=== PATIENT | female | born 1985 | race Caucasian/White ===

== ENCOUNTER → 2018-09-09 07:57 | Outpatient (CLI) | payer BC, SELFPAY ==
[2018-09-09 09:32] LABS: Alanine Aminotransferase 27 U/L (12-78); Albumin Level 3.7 gm/dL (3.4-5.0); Albumin/Globulin Ratio 1.1 (1.1-1.8); Alkaline Phosphatase 71 U/L (46-116); Anion Gap 13.5 mEq/L (5-15); Aspartate Amino Transferase 10 U/L (15-37); Bilirubin,Total 0.3 mg/dL (0.2-1.0); Blood Urea Nitrogen 11 mg/dL (7-18); Carbon Dioxide 26 mmol/L (21.0-32.0); Chloride 105 mmol/L (98-107); Chol/HDL Ratio 5.4 (1-3.5); Cholesterol 227 mg/dL (140-200); Creatinine,Serum 0.78 mg/dL (0.55-1.02); Estimated Glomerular Filt Rate 86 ml/min (>60); GFR (African American) 104 ML/MIN (>60); Globulin 3.5 gm/dl (1.3-3.2); Glucose 91 mg/dL (74-106); HDL Cholesterol 42 mg/dL (29-89); LDL Cholesterol 157 mg/dL (0-130); Potassium 4.5 mmoL/L (3.5-5.1); Sodium 140 mmol/L (136-145); Total Protein,Serum 7.2 gm/dL (6.4-8.2); Triglycerides 139 mg/dL (30-200); VLDL Cholesterol 28 mg/dL (0-40)
== END ==
PROVIDERS: Visit Provider Nurse Practitioner Family
DX: Z00.00 Encounter for general adult medical examination without abnormal findings (principal)
CPT/HCPCS: 36415; 80053; 80061

== ENCOUNTER → 2018-10-02 09:53 | Outpatient (CLI) | payer BC, SELFPAY ==
[2018-10-02 11:24] LABS: Anion Gap 14.1 mEq/L (5-15); Blood Urea Nitrogen 10 mg/dL (7-18); Calcium 8.6 mg/dL (8.5-10.1); Carbon Dioxide 25 mmol/L (21.0-32.0); Chloride 103 mmol/L (98-107); Creatinine,Serum 0.71 mg/dL (0.55-1.02); Estimated Glomerular Filt Rate 95 ml/min (>60); GFR (African American) 115 ML/MIN (>60); Glucose 89 mg/dL (74-106); Potassium 4.1 mmoL/L (3.5-5.1); Sodium 138 mmol/L (136-145)
== END ==
PROVIDERS: Visit Provider Nurse Practitioner Family
DX: I10 Essential (primary) hypertension (principal)
CPT/HCPCS: 36415; 80048

== ENCOUNTER → 2019-01-02 13:03 | Outpatient (CLI) | payer BC, SELFPAY ==
--- NOTE | 2019-01-02 13:18 | XR_ITS ---
XR Multiple Spine 6+V CLINICAL INDICATION: ITS.REASON: THORACIC SPINE PAIN,CERVICAL PAIN,H/O SPINAL SURGERY ORDERING PHYSICIAN: Delaney Bennett APRN PATIENT AGE: 33 years Comparison: None FINDINGS: Multiple views are obtained of the cervical and of the thoracic spine. Cervical spine has an unremarkable appearance. There is normal alignment with no fracture or dislocation or significant degenerative change. No abnormal subluxation. The foramina are widely patent. There are Leija jarred is present in the thoracic spine with the superior aspect of the right fixed at the T2 level in the inferior aspect of the rods fixed at the T9-T10 level. There is minimal mid thoracic scoliosis convex right. No acute fracture or dislocation is evident.. There remains decrease in height along the left aspect of the T4 vertebral body. No significant change with no acute finding. Calcified granulomas are noted in the right lung base IMPRESSION: Overall no significant change in the Leija rods. Mild upper thoracic curvature convex right with mild wedging of T4 along the left lateral aspect not significantly changed. Unremarkable cervical spine
== END ==
LOC: RAD 13:07
PROVIDERS: PCP Nurse Practitioner Family; Visit Provider Nurse Practitioner Family
DX: M54.6 Pain in thoracic spine (principal); M54.2 Cervicalgia; M54.9 Dorsalgia, unspecified; G89.29 Other chronic pain
CPT/HCPCS: 72084

== ENCOUNTER → 2019-01-05 14:07 | Outpatient (POV) | payer BC, SELFPAY ==
[2019-01-05 14:32] VITALS: BP 135/88; PULSE 113; RESP 18; O2SAT 98; BMI 29.8
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
== END ==
PROVIDERS: PCP Nurse Practitioner Family; Visit Provider Clinical Nurse Specialist Family Health
DX: M50.30 Other cervical disc degeneration, unspecified cervical region (principal); M96.1 Postlaminectomy syndrome, not elsewhere classified
CPT/HCPCS: 99202

== ENCOUNTER → 2019-01-12 07:56 | Outpatient (CLI) | payer BC, SELFPAY ==
--- NOTE | 2019-01-12 08:02 | MR_ITS ---
PROCEDURE: MR CERVICAL SPINE WO CON CLINICAL INDICATION: NECK PAIN Right shoulder pain, right arm numbness, prior neck surgery COMPARISON: CS5 CERVICAL SPINE 4 OR 5 VIEWS from 02/07/2015 TECHNIQUE: Standard multiplanar multiecho sequences are performed without contrast. 3-D MIP and myelographic images are also rendered and reviewed FINDINGS: Extensive artifact is present in the lower cervical spine and upper thoracic spine obscuring fine detail at T7 posteriorly and T1 and lower. The cranial cervical junction has an unremarkable appearance. C2-C3: Unremarkable. C3-C4: Unremarkable. C4-C5: Minimal central disc protrusion abutting the cord anteriorly but without cord displacement or impingement. There narrowing of the canal at this level at 10 mm. C5-C6: Minimal central disc protrusion without impingement. C6-C7: Axial images are nondiagnostic due to artifact. There is some minimal bulging disc at C6-C7 without cord impingement. No extruded herniated disc evident. IMPRESSION: Significant artifact in the lower cervical and upper thoracic spine obscuring fine detail. C4-C5: Minimal central disc protrusion abutting the cord anteriorly but without cord displacement or impingement. There narrowing of the canal at this level at 10 mm. C5-C6: Minimal central disc protrusion without impingement. C6-C7: Axial images are nondiagnostic due to artifact. There is some minimal bulging disc at C6-C7 without cord impingement Dictated by: Jose Luis Barnes MD 01/13/2019 07:02 Signed by: <Electronically signed by Jose Luis Barnes MD in [place]> 01/13/2019 07:02
== END ==
PROVIDERS: PCP Nurse Practitioner Family; Visit Provider Clinical Nurse Specialist Family Health
DX: M54.2 Cervicalgia (principal)
CPT/HCPCS: 72141; 76376

== ENCOUNTER → 2019-01-19 08:45 | Outpatient (POV) | payer BC, SELFPAY ==
[2019-01-19 09:02] VITALS: BP 135/89; PULSE 98; RESP 18; O2SAT 98; BMI 30.9
--- NOTE | 2019-01-19 09:25 | HMH.PAINSOAP ---
[facility] Pain Management SOAP Note Subjective:: Patient is an extremely pleasant 33-year-old white female who presents today for consultation after her MRI. Patient has C4-C5 C5-C6 C6-C7 bulging disks. There is no displacement or impingement of the cord. patient has pain in her neck radiating into her arm. We discussed moving forward with epidural steroid injections. She rates her pain an 8 out of 10. Patient is not sleeping well. Patient has been on Mobic for some time we discussed switching her off some of her medications to help with increased pain relief. ROS General: no recent weight change, no fever, no sleep disturbances Respiratory: no cough, no shortness of air, no recurring pulmonary infections Cardiovascular/Peripheral Vascular: No chest pain, No palpitations, no edema, no shortness of breath. Gastrointestinal: no incontinence, normal bowel movements reported Genitourinary: no incontinence Musculoskeletal: Neck pain, arm pain Psychiatric: normal mood/ affect, Neurological: [denies weakness in extremities], [denies balance issues] Objective:: Physical Exam General: Alert and oriented x3, no acute distress, pleasant and cooperative, [on room air] Lungs: Resps E/U, Symmetrical chest expansion, Eyes: PERRL Musculoskeletal: Flexion and extension of cervical spine somewhat guarded secondary to pain, deep tendon reflexes normal, strength in upper and lower extremities [5/5], normal gait noted Neurological: speech clear, butter printer equal, no gross sensory deficits Assessment:: Degenerative disc disease cervical spinal cervical radiculopathy and cervical postlaminectomy syndrome Plan:: We will schedule her C5-C6 cervical epidural steroid injection. We will also start her on gabapentin 100 mg at bedtime to see if this is beneficial. I also gave her a sample of Duexis to try in place of her Mobic. I will follow-up with her after her epidural and reassess her symptoms at that time we did briefly talk about the [place] spinal [place] as well. Patient is continuing a home stretching program. She is not on any anticoagulation therapy. She is failed 6 months of conservative treatments including anti-inflammatories and medications. Dr. Rodríguez has reviewed this note and agrees with this plan of care. This note was dictated using voice recognition software and may contain errors or omissions Pain Management Hx Components *Have you ever received a pneumonia vaccine?: Yes *Have you received a flu vaccine this season?: Yes - *Social History *Occupational Status:: other *Travel in the last 8 weeks: None
--- NOTE | 2019-01-19 09:28 | P.CONS_ITS ---
[facility] Pain Management SOAP Note Subjective:: Patient is an extremely pleasant 33-year-old white female who presents today for consultation after her MRI. Patient has C4-C5 C5-C6 C6-C7 bulging disks. There is no displacement or impingement of the cord. patient has pain in her neck radiating into her arm. We discussed moving forward with epidural steroid injections. She rates her pain an 8 out of 10. Patient is not sleeping well. Patient has been on Mobic for some time we discussed switching her off some of her medications to help with increased pain relief. ROS General: no recent weight change, no fever, no sleep disturbances Respiratory: no cough, no shortness of air, no recurring pulmonary infections Cardiovascular/Peripheral Vascular: No chest pain, No palpitations, no edema, no shortness of breath. Gastrointestinal: no incontinence, normal bowel movements reported Genitourinary: no incontinence Musculoskeletal: Neck pain, arm pain Psychiatric: normal mood/ affect, Neurological: [denies weakness in extremities], [denies balance issues] Objective:: Physical Exam General: Alert and oriented x3, no acute distress, pleasant and cooperative, [on room air] Lungs: Resps E/U, Symmetrical chest expansion, Eyes: PERRL Musculoskeletal: Flexion and extension of cervical spine somewhat guarded secondary to pain, deep tendon reflexes normal, strength in upper and lower extremities [5/5], normal gait noted Neurological: speech clear, prosthetic technician equal, no gross sensory deficits Assessment:: Degenerative disc disease cervical spinal cervical radiculopathy and cervical postlaminectomy syndrome Plan:: We will schedule her C5-C6 cervical epidural steroid injection. We will also start her on gabapentin 100 mg at bedtime to see if this is beneficial. I also gave her a sample of Duexis to try in place of her Mobic. I will follow-up with her after her epidural and reassess her symptoms at that time we did briefly talk about the [place] spinal [place] as well. Patient is continuing a home stretching program. She is not on any anticoagulation therapy. She is failed 6 months of conservative treatments including anti-inflammatories and medications. Dr. Rodríguez has reviewed this note and agrees with this plan of care. This note was dictated using voice recognition software and may contain errors or omissions Pain Management Hx Components *Have you ever received a pneumonia vaccine?: Yes *Have you received a flu vaccine this season?: Yes - *Social History *Occupational Status:: other *Travel in the last 8 weeks: None
== END ==
PROVIDERS: PCP Nurse Practitioner Family; Visit Provider Clinical Nurse Specialist Family Health
DX: M50.10 Cervical disc disorder with radiculopathy, unspecified cervical region (principal); M96.1 Postlaminectomy syndrome, not elsewhere classified
CPT/HCPCS: 99212

== ENCOUNTER → 2019-02-24 09:26 | Outpatient (POV) | payer BC, SELFPAY ==
[2019-02-24 09:50] VITALS: BP 147/98; PULSE 98; RESP 18; O2SAT 98; BMI 30.9
--- NOTE | 2019-02-24 10:10 | HMH.PAINSOAP ---
[facility] Pain Management SOAP Note Subjective:: Patient is a pleasant 33-year-old white female who was treated for pain secondary to degenerative disc disease cervical spine with cervical disc bulge and radiculopathy. Patient is also had cervical postlaminectomy. Patient rates her pain today 2 out of 10 and states she is doing much better stating that she is having 80% relief from her injection. She is also taking her gabapentin nightly with no side effects. We will do a slight increase in this today. ROS General: no recent weight change, no fever, no sleep disturbances Respiratory: no cough, no shortness of air, no recurring pulmonary infections Cardiovascular/Peripheral Vascular: No chest pain, No palpitations, no edema, no shortness of breath. Gastrointestinal: no incontinence, normal bowel movements reported Genitourinary: no incontinence Musculoskeletal: Neck pain Psychiatric: normal mood/ affect Neurological: [denies weakness in extremities], [denies balance issues] Objective:: Physical Exam General: Alert and oriented x3, no acute distress, pleasant and cooperative, [on room air] Lungs: Resps E/U, Symmetrical chest expansion, Eyes: PERRL Musculoskeletal: Flexion and extension of cervical spine somewhat guarded secondary to pain, deep tendon reflexes normal, strength in upper and lower extremities [5/5], normal gait noted Neurological: speech clear, senior recruitment consultant equal, no gross sensory deficits Assessment:: Degenerative disc disease cervical spinal cervical radiculopathy and cervical postlaminectomy syndrome Plan:: We will see the patient back in 6 weeks we will increase her gabapentin to 300 mg 1 p.o. twice daily patient's been instructed to call the office if she has any issues prior to her next appointment. Dr. Rodríguez has reviewed this note and agrees with this plan of care. This note was dictated using voice recognition software and may contain errors or omissions [facility] History I have reviewed the patient's past medical history: Yes Medical History: Reports:: Hyperlipidemia, Hypertension, Palpitations Denies:: Asthma, Cancer, Congestive Heart Failure, Chronic Obstructive Pulmonary Disease (COPD), Deep Vein Thrombosis, Diabetes Mellitus Type 1, Diabetes Mellitus Type 2, MRSA, Pulmonary Embolism, Seizures *Have you ever received a pneumonia vaccine?: Yes *Have you received a flu vaccine this season?: Yes Other Surgeries: Yes: Cholecystectomy, , Tubal Ligation, Other Amputation: No Fractures: No - *Social History Smoking Status: Never smoker Alcohol Intake: never Substance Use Type: denies use *Occupational Status:: other Housing: house Household Members: other *Travel in the last 8 weeks: None Family Hx:: Coronary Artery Disease, Heart Attack
== END ==
PROVIDERS: PCP Nurse Practitioner Family; Visit Provider Clinical Nurse Specialist Family Health
DX: M50.10 Cervical disc disorder with radiculopathy, unspecified cervical region (principal); M96.1 Postlaminectomy syndrome, not elsewhere classified
CPT/HCPCS: 99212

== ENCOUNTER → 2019-06-01 14:56 | Outpatient (POV) | payer BC, SELFPAY ==
[2019-06-01 15:16] VITALS: BP 120/77; PULSE 87; RESP 18; O2SAT 99; BMI 31.6
--- NOTE | 2019-06-02 08:28 | P.CONS_ITS ---
[facility] Pain Management SOAP Note Subjective:: Patient is a very pleasant 33-year-old white female who presents today for follow-up overall patient is doing extremely well rating her pain today a 0 out of 10. Patient is currently on gabapentin 300 mg 1 p.o. twice daily patient has been being treated for cervical pain secondary to surgery. Patient's Chalo #[id number] reviewed and appropriate. Patient denies any side effects to her medication overall patient's doing well. ROS General: no recent weight change, no fever, no sleep disturbances Respiratory: no cough, no shortness of air, no recurring pulmonary infections Cardiovascular/Peripheral Vascular: No chest pain, No palpitations, no edema, no shortness of breath. Gastrointestinal: no new onset incontinence, normal bowel movements reported Genitourinary: no new onset incontinence Musculoskeletal: Neck pains at time Psychiatric: normal mood/ affect Neurological: [denies new onset weakness in extremities], [denies new onset balance issues] Objective:: Physical Exam General: Alert and oriented x3, no acute distress, pleasant and cooperative, [on room air] Lungs: Resps E/U, Symmetrical chest expansion, Eyes: PERRL Musculoskeletal: Flexion and extension of cervical spine somewhat guarded secondary to pain, deep tendon reflexes normal, strength in upper and lower extremities [5/5], [abnormal gait noted] Neurological: speech clear, travel service consultant equal, no gross sensory deficits Assessment:: Degenerative disc disease cervical spine cervical radiculopathy postlaminectomy syndrome cervical spine Plan:: we will continue the patient on gabapentin 3 mg 1 p.o. twice daily. She stable at this dose we will see her back in 6 months reassess her symptoms at that time she is been instructed call the office if she has any issues prior to her next appointment. Dr. Rodríguez has reviewed this note and agrees with this plan of care. This note was dictated using voice recognition software and may contain errors or omissions [facility] History I have reviewed the patient's past medical history: Yes Medical History: Reports:: Hyperlipidemia, Hypertension, Palpitations Denies:: Asthma, Cancer, Congestive Heart Failure, Chronic Obstructive Pulmonary Disease (COPD), Deep Vein Thrombosis, Diabetes Mellitus Type 1, Diabetes Mellitus Type 2, MRSA, Pulmonary Embolism, Seizures *Have you ever received a pneumonia vaccine?: Yes *Have you received a flu vaccine this season?: Yes Other Surgeries: Yes: Cholecystectomy, , Tubal Ligation, Other Amputation: No Fractures: No - *Social History Smoking Status: Never smoker Alcohol Intake: never Substance Use Type: denies use *Occupational Status:: other Housing: house Household Members: other *Travel in the last 8 weeks: None Family Hx:: Coronary Artery Disease, Heart Attack
== END ==
PROVIDERS: PCP Nurse Practitioner Family; Visit Provider Clinical Nurse Specialist Family Health
DX: M50.10 Cervical disc disorder with radiculopathy, unspecified cervical region (principal); M96.1 Postlaminectomy syndrome, not elsewhere classified
CPT/HCPCS: 99212

== ENCOUNTER → 2019-09-29 08:33 | Outpatient (POV) | payer BC, SELFPAY ==
--- NOTE | 2019-09-29 12:56 | HMH.VVPMSO ---
[facility] Virtual Visit SOAP Consent for virtual visit:: With the recent concerns about the COVID-19, we are trying to minimize exposure to you by shifting to telehealth appointments whenever possible. It restricts me from seeing you in person, but the trade off is protecting you during this pandemic. Can you see and hear me okay, and do you consent to this option? If not, I would be happy to see if we can reschedule your appointment in the future, when feasible. Has patient consented to this virtual visit?: Yes Subjective:: Patient is a very pleasant 33-year-old white female who presents today for follow-up. Patient had a cervical C5-C6 cervical epidural steroid injection 6 months ago and has done extremely well until recently. Her pain is returned she rates an 8 out of 10 she is having difficulty sleeping. Most of her pain is in her neck and down her arm. Patient has had cervical postlaminectomy syndrome. Patient's injections do seem to help especially in conjunction with a small dose of gabapentin. Patient is currently on gabapentin 600 mg 1 p.o. nightly. She denies side effects of the medication. She is not on any anticoagulation therapy. ROS General: no recent weight change, no fever, no sleep disturbances Respiratory: no cough, no shortness of air, no recurring pulmonary infections Cardiovascular/Peripheral Vascular: No chest pain, No palpitations, no edema, no shortness of breath. Gastrointestinal: no new onset incontinence, normal bowel movements reported Genitourinary: no new onset incontinence Musculoskeletal: Neck pain, arm pain Psychiatric: normal mood/ affect Neurological: [denies new onset weakness in extremities], [denies new onset balance issues] Objective:: Physical exam: Constitutional: Healthy appearing, well-developed, alert, in no acute distress Psychiatric: Judgment and insight intact, Alert and oriented x4 Mood and affect: Mood normal, affect appropriate Head and face: Inspection: Normocephalic atraumatic, extraocular movement intact Respiratory: Breathing nonlabored, nondyspneic Cardiovascular: No cyanosis, clubbing, or edema observed Skin: Head and neck: Skin with no lesions or rash observed Gait: Able to walk without assistive device: Able to heel and toe walk Neurologic: Sensation grossly intact per patient Musculoskeletal: Noted decreased range of motion cervical spine secondary to guarding Assessment:: Cervical postlaminectomy syndrome, radiculopathy cervical spine, degenerative disc disease cervical spine Plan:: We will set a C5-C6 cervical epidural steroid injection up for the patient. Patient will continue taking her gabapentin 600 mg 1 p.o. nightly. I will follow-up with her after her injection reassess her symptoms at that time she has been instructed to call the office if she has any issues prior to her next appointment. This encounter was performed as a telemedicine visit via secure 2 way video and audio to minimize risk and transmission of Covid-19. The patient and we understand the limitations of a telemedicine visit including inability to check reflexes, possibly missing subtle findings on physical exam. Alternative options were presented to the patient and the patient elected to proceed with the visit. We specifically discussed risk factors for Covid-19 including age, heart or lung disease, diabetes, immunosuppression and travel. We also discussed that NSAIDs may worsen Covid-19 infection symptoms and that they should not be used to treat Covid-19 symptoms. Patient was also informed that corticosteroids in any form oral or injectable will decrease immune response and may increase risk of Covid-[address] Rodríguez has reviewed this patient's chart and this note and agrees with plan of care. Patient has been instructed to call the office if they have any issues prior to the next appointment. Dr. Rodríguez has reviewed this note and agrees with this plan of care. This note wa
== END ==
PROVIDERS: Visit Provider Clinical Nurse Specialist Family Health
DX: M96.1 Postlaminectomy syndrome, not elsewhere classified (principal); M50.10 Cervical disc disorder with radiculopathy, unspecified cervical region
CPT/HCPCS: 99212

== ENCOUNTER → 2019-09-30 12:14 | Outpatient (CLI) | payer BC, SELFPAY ==
[2019-10-01 15:02] LABS: Covid-19 Nasal PCR Sendout Lex NOT DETECTED
== END ==
PROVIDERS: Anesthesiology; Visit Provider Clinical Nurse Specialist Family Health
DX: Z03.818 Encounter for observation for suspected exposure to other biological agents ruled out (principal)
CPT/HCPCS: U0003

== ENCOUNTER 2019-10-02 09:30 | Day surgery (SDC) | payer BC, SELFPAY ==
[2019-10-02 10:04] VITALS: BP 134/85; PULSE 91; RESP 18; TEMP 36.9; O2SAT 96; BMI 31.2
[2019-10-02 10:39] VITALS: BP 129/87; PULSE 101; RESP 20; O2SAT 100
[2019-10-02 10:40] VITALS: BP 130/92; PULSE 100; RESP 20; O2SAT 98
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
[2019-10-02 11:01] VITALS: BP 126/86; PULSE 93; RESP 18; O2SAT 98
== END 2019-10-02 11:02 | disposition home or self-care (01) ==
LOC: SC.PAINP 09:31
PROVIDERS: PCP Nurse Practitioner Family; Visit Provider Anesthesiology
DX: M50.10 Cervical disc disorder with radiculopathy, unspecified cervical region (principal); M96.1 Postlaminectomy syndrome, not elsewhere classified; Z79.899 Other long term (current) drug therapy; Z88.0 Allergy status to penicillin; I10 Essential (primary) hypertension; E78.5 Hyperlipidemia, unspecified
CPT/HCPCS: 62321; J1040; Q9966

== ENCOUNTER → 2019-10-26 13:11 | Outpatient (POV) | payer BC, SELFPAY ==
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
== END ==
PROVIDERS: Visit Provider Clinical Nurse Specialist Family Health
DX: M50.10 Cervical disc disorder with radiculopathy, unspecified cervical region (principal); M96.1 Postlaminectomy syndrome, not elsewhere classified; M54.6 Pain in thoracic spine
CPT/HCPCS: 99212

== ENCOUNTER 2019-11-06 12:46 | Day surgery (SDC) | payer BC, SELFPAY ==
[2019-11-06 13:04] VITALS: BP 142/101; PULSE 100; RESP 18; TEMP 36.8; O2SAT 99; BMI 31.4
--- NOTE | 2019-11-06 13:07 | HMH.PMPROC ---
- Procedure Date: 11/06/19 Time: 13:07 Anesthesiologist:: Abdelrahman Rodríguez MD Complications:: None Pre-procedure Diagnosis:: Degenerative disc disease of cervical spine with cervical radiculopathy symptoms Post-procedure Diagnosis:: Same Indications for Procedure:: Patient is a pleasant 34-year-old white female who we are treating for neck pain with cervical radiculopathy symptoms. She does well with epidurals however she did not get as much relief from her first epidural steroid injection. We will do a repeat cervical epidural steroid injection today to help her with her pain symptoms. Procedure Details:: Cervical epidural steroid injection under fluoroscopy Informed consent was obtained and the risks and benefits of the procedure was explained to the patient. The patient was taken to the procedure room placed prone on the procedure table. The neck was prepped using ChloraPrep. The skin and subcutaneous tissues were anesthetized using lidocaine. I placed a 18-gauge epidural needle into the C5-C6 interspace and advanced using [id number] to air and fluoroscopic guidance. After confirmation of needle placement in the epidural space with dye, I injected 3 mL's lidocaine 1.5% and Depo-Medrol 80 mg. The patient tolerated the procedure well with no complications. Plan and Disposition:: We will follow-up with her in 2 weeks. Will reevaluate symptoms at that time. If she does not get much relief with this injection I believe she is a candidate for intrathecal pump therapy. She is not a candidate for spinal cord stimulation because of the hardware throughout her spine. However she may be a good candidate for intrathecal pump therapy with fentanyl or ziconotide
[2019-11-06 13:24] VITALS: BP 118/89; BP 120/87; PULSE 85; PULSE 88; RESP 18; O2SAT 99
[2019-11-06 13:50] VITALS: BP 138/96; PULSE 93; RESP 20; O2SAT 99
== END 2019-11-06 13:51 | disposition home or self-care (01) ==
LOC: SC.PAINP 12:47
PROVIDERS: PCP Nurse Practitioner Family; Visit Provider Anesthesiology
DX: M50.10 Cervical disc disorder with radiculopathy, unspecified cervical region (principal); Z88.0 Allergy status to penicillin; Z88.1 Allergy status to other antibiotic agents; Z90.49 Acquired absence of other specified parts of digestive tract; Z79.899 Other long term (current) drug therapy
CPT/HCPCS: 62321; J1040; Q9966

== ENCOUNTER → 2019-12-10 07:51 | Outpatient (CLI) | payer BC, SELFPAY ==
--- NOTE | 2019-12-10 07:54 | MR_ITS ---
PROCEDURE: MR CERVICAL SPINE WO CON CLINICAL INDICATION: CERVICAL PAIN Rt sided neck pain with bilateral shoulder pain. Headache. Rt arm pain, numbness, and tingling. No injury. Prior mri 01-12-19 COMPARISON: MR CERVICAL SPINE WO CON from 01/12/2019 XR PAIN MGT INJ from 11/06/2019 TECHNIQUE: Standard multiplanar multiecho sequences are performed without contrast. 3-D MIP and myelographic images are also rendered and reviewed FINDINGS: Significant artifact is present from metallic rods in the upper thoracic spine. The craniocervical junction has an unremarkable appearance. C2-C3: Unremarkable. C3-C4: Unremarkable. C4-C5: Minimal central disc protrusion versus prominent posterior longitudinal ligament. There is narrowing of the canal at this level without impingement similar to the previous exam. The canal measures 9 mm. C5-C6: Minimal central disc protrusion versus prominent posterior longitudinal ligament with narrowing of the canal without cord flattening. C6-C7: Minimal bulging disc with mild narrowing of the canal. C7-T1: Incompletely evaluated due to significant artifact. IMPRESSION: Postsurgical changes with artifact obscuring the lower cervical spine. Overall no change in the appearance of the cervical spine with minimal central disc protrusion versus prominent posterior longitudinal ligament at C4-C5 and C5-C6 with canal stenosis but no significant cord impingement. Dictated by: Jose Luis Barnes MD 12/11/2019 09:20 Electronically signed by Jose Luis Barnes MD in [place] 12/11/2019 09:20
== END ==
PROVIDERS: PCP Nurse Practitioner Family; Visit Provider Nurse Practitioner Family
DX: M54.2 Cervicalgia (principal)
CPT/HCPCS: 72141; 76376

== ENCOUNTER → 2020-02-25 07:58 | Outpatient (CLI) | payer BC, SELFPAY ==
--- NOTE | 2020-02-25 08:05 | CT_ITS ---
PROCEDURE: CT THORACIC SPINE WO CON CLINICAL HISTORY: THORACIC SPINAL FUSION,THORACIC PAIN upper t spione pain hx of bladimir rods COMPARISON: CT AGCHEST CT angio chest from 09/10/2017 TECHNIQUE: Axial images obtained with sagittal and coronal reformats. All CT scans at the facility use one or more dose reduction, viz: automated exposure control, ma/kV adjustment per patient size (including targeted exams where dose is matched to indication, i.e. head), or iterative reconstruction technique. FINDINGS: Leija rods are present with the proximal clamp at T1 and distal clamp at the T9-T10 level. There is mild thoracic kyphosis and there is mild scoliosis convex right. There is mild chronic wedging at the T4 area greater on the left. The scoliosis measures approximately 18 degrees. The wedging at T4 is not significantly changed. No acute fracture or dislocation. No malalignment. There is mild multilevel degenerative disc disease with decrease in the disc space from T5-T10. No significant bony spurring. No bony canal stenosis. No extra spinal mass. The rods appear intact although would be better evaluated with plain film due to the artifact at a cause. There does not appear to be significant change compared to chest CT of 09/10/2017. Calcified granulomas are present in the right lung base IMPRESSION: 1. Chronic changes with Leija rods present and mild chronic wedging of T4. 2. No acute finding. Dictated by: Jose Luis Barnes MD 02/28/2020 09:19 Jose Luis Barnes MD in [facility] 02/28/2020 09:19
== END ==
LOC: RAD 07:58
PROVIDERS: PCP Nurse Practitioner Family; Visit Provider Neurological Surgery
DX: M54.6 Pain in thoracic spine (principal); Z98.1 Arthrodesis status
CPT/HCPCS: 72128

== ENCOUNTER 2020-03-18 08:30 | Outpatient (RCR) | payer BC, SELFPAY | END 2020-03-18 08:35 | disposition home or self-care (01) | LOC: PT 08:30 | PROVIDERS: PCP Nurse Practitioner Family; Visit Provider Physician Assistant Medical | DX: M54.2 Cervicalgia; M54.9 Dorsalgia, unspecified; Z98.1 Arthrodesis status | CPT/HCPCS: 20560; 97010; 97014; 97035; 97110; 97140; 97163; G0283 ==

== ENCOUNTER → 2020-03-31 08:37 | Outpatient (CLI) | payer BC, SELFPAY ==
--- NOTE | 2020-03-31 08:44 | FL_ITS ---
PROCEDURE: FL UPPER GI W AIR CLINICAL INDICATION: GERD Pain, reflux COMPARISON: No exams were available for comparison TECHNIQUE: FLUOROSCOPY TIME : 1 minutes and 30 seconds FINDINGS: The esophagus, stomach, and duodenum have an unremarkable appearance.There is no evidence of hiatal hernia. No ulcer or mass evident. No mucosal abnormalities apparent. There is normal peristalsis. The duodenal C-loop is nondisplaced. Leija rods are present spanning the thoracic spine IMPRESSION: Mild GE reflux otherwise negative upper Dictated by: Jose Luis Barnes MD 03/31/2020 15:39 Jose Luis Barnes MD in [place] 03/31/2020 15:39
== END ==
LOC: RAD 08:38
PROVIDERS: PCP Nurse Practitioner Family; Visit Provider Nurse Practitioner Family
DX: K21.9 Gastro-esophageal reflux disease without esophagitis (principal)
CPT/HCPCS: 74246

== ENCOUNTER 2020-05-08 14:43 | Emergency (ER) | payer BC, SELFPAY ==
[2020-05-08 14:57] VITALS: BP 146/92; PULSE 106; RESP 20; TEMP 36.9; O2SAT 98; BMI 32.4
--- NOTE | 2020-05-08 15:02 | HMH.EDUTC ---
[facility] Disposition Clinical Impression: Sinusitis Qualifiers: Sinusitis location: unspecified location Chronicity: unspecified Qualified Code(s): J32.9 - Chronic sinusitis, unspecified Disposition: Home, Self-Care Condition on Discharge: Good Instructions: Sinusitis, Sinus Headache, DI for Sinusitis, Preventing the Spread of Coronavirus Discharge Instructions Additional Instructions: *Monitor Temp, Over the counter Motrin or Tylenol as directed/as needed Tylenol every 4 hours and Motrin every 6 hours (as long as your family doctor has told you that you can take it) for fever or pain. and straight to ER if unable to lower temp less than 101.0 after medication given *Warm salt water gargles may help to soothe the throat *Throat Lozenges *Warm fluids like tea with honey may help to soothe the throat *Sleep elevated *Humidifier/Vaporizer *Flonase 2 sprays in each nostril daily but be aware that it may take 2-3 days before you notice improvement Follow up IMMEDIATELY for new or worsening symptoms or no Noticeable improvement over the next 48-72 hours. 911 for difficulty breathing or swallowing You were tested for today for COVID19 your test result should be back in the next 24-48 hours, you may call to the [facility] to see if your test results are back in the next 48 hours [phone] [facility] hours are 9am-9pm You was given a handout with instructions for Self Quarantine and Self isolation for while you wait on test results and what to do if they are positive If you are positive the Health Dept will be contacting you also Prescriptions: Fluticasone Propionate [Flonase 50mcg nasal spray 16gm] 1 spr NS DAILY #1 bottle Transmission Status: [facility] methylPREDNISolone [Medrol 4mg tab] 4 mg PO DIRECTED #21 tab Transmission Status: [facility] Benzonatate [Tessalon Perle 100mg Cap*] 100 mg PO TID PRN #15 cap PRN Reason: Cough Transmission Status: [facility] Azithromycin [Z-Quinton 250mg Tab] 250 mg PO DIRECTED #6 tab Transmission Status: [facility] Referrals: Delaney Bennett APRN [Primary Care Provider] - As needed Forms: Work/School Release Time of Disposition: 15:11 Medical Decision Making - Chalo Inquiry Pt receiving controlled substance: No Chalo was queried for this patient: No Vital Signs: 05/08/20 14:57 Temperature 98.4 F Temperature Source Oral Pulse Rate [Radial] 106 H Respiratory Rate 20 Blood Pressure [Right Arm] 146/92 H Blood Pressure Mean [Right Arm] 110 Blood Pressure Source [Right Arm] Automatic Cuff Blood Pressure Position [Right Arm] Sitting 02 Sat by Pulse Oximetry 98 Oxygen Delivery Method Room Air Orders (Tests/Meds): ORDERS Category Date Time Status Covid-19 Nasal PCR Sendout [facility] 05/08/20 14:53 Ordered [facility] HPI - General Stated complaint: Congestion;cough; Time Seen by Provider: 05/08/20 15:02 Mode of Arrival: Ambulatory Source of Information: Patient Limitations: No Limitations Description of Symptoms (Recalled from Triage Doc. 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
[2020-05-08 15:15] VITALS: BP 146/92; PULSE 106; RESP 20; TEMP 36.9; O2SAT 98
[2020-05-10 13:15] LABS: Covid-19 Nasal PCR Sendout Lex NOT DETECTED
== END 2020-05-08 15:16 | disposition home or self-care (01) ==
PROVIDERS: Emergency Provider Nurse Practitioner; PCP Nurse Practitioner Family
DX: Z20.828 Contact with and (suspected) exposure to other viral communicable diseases (principal); J32.9 Chronic sinusitis, unspecified; Z88.0 Allergy status to penicillin
CPT/HCPCS: 99201; U0004

== ENCOUNTER → 2020-05-10 10:42 | Outpatient (CLI) | payer BC, SELFPAY ==
[2020-05-12 14:26] LABS: H. pylori Stool Ag, EIA Negative (Negative)
== END ==
PROVIDERS: Visit Provider Nurse Practitioner Family
DX: K21.9 Gastro-esophageal reflux disease without esophagitis (principal)
CPT/HCPCS: 87338

== ENCOUNTER → 2020-07-21 07:45 | Outpatient (CLI) | payer BC, SELFPAY ==
[2020-07-21 08:51] LABS: Coronavirus 19 IgG Antibody Positive (Negative); Coronavirus 19 IgM Antibody Negative (Negative)
== END ==
PROVIDERS: Visit Provider Internal Medicine Gastroenterology
DX: Z01.818 Encounter for other preprocedural examination (principal); Z20.822 Contact with and (suspected) exposure to COVID-19; Z13.810 Encounter for screening for upper gastrointestinal disorder; K21.9 Gastro-esophageal reflux disease without esophagitis
CPT/HCPCS: 36415; 86328

== ENCOUNTER 2020-07-22 07:35 | Day surgery (SDC) | payer BC, SELFPAY ==
[2020-07-14 10:29] VITALS: BMI 31.7
[2020-07-22] VITALS (7 sets, daily range): BP systolic 99–128; BP diastolic 62–80; PULSE 70–98; RESP 16–18; TEMP 36.2–36.3; O2SAT 92–100
[2020-07-22 08:00] LABS: HCG Qualitative, Serum Negative (Negative)
--- NOTE | 2020-07-22 08:34 | HMH.PROC ---
[facility] Procedure Note Procedure Note:: Upper Endoscopy Procedure Report: Esophagogastroduodenoscopy with cold biopsies and TTS balloon dilation Endoscopost: Ayaz Kign II, MD Referring Physician: OSCAR Lopez Date of Procedure: July 22, 2020 Equipment: Olympus GIF 180 standard upper endoscope Sedation: MAC sedation Indications: Mrs. Mccabe is a 34-year-old female with heartburn and reflux. She describes coughing that can last for up to an hour. She has had this for more than a year. This was initially controlled with pantoprazole and she does take 40 mg by mouth nightly. The patient does have some chest pain and pressure that can radiate into the back. She also reports some globus sensation. She has bloating but no belching. She often feels the need to belch but cannot. The patient reports no early satiety or regurgitation. Initially she had some nausea. Formerly she had more dyspepsia with epigastric abdominal pain and discomfort but now this is very mild. The patient was having constipation/obstipation and this has significantly improved after initiating the fiber bowel regimen (combined MiraLAX plus Metamucil). She did have an EGD with Dr. Oliverio Amaro in July 2016 and had some gastritis. She has a negative H. pylori stool antigen test. She does take [id number] probiotics. She has had prior cholecystectomy. Procedure: Prior to the procedure, a history and physical exam was performed, and patient's medications and allergies were reviewed. The risks, benefits and alternatives of the sedation and procedure were discussed with the patient. All questions were answered and informed consent was obtained. The patient was brought to the procedure room. Patient identification and proposed procedure were verified by the physician and the nurse. The patient was placed in a left lateral decubitus position and the scope was passed under direct vision. Throughout the procedure, the patient's blood pressure, pulse, and oxygen saturations were monitored continuously. The upper GI endoscopy was accomplished without difficulty. The patient tolerated the procedure well. Findings: The scope was passed directly into the upper esophagus and advanced to the third portion of the duodenum. The post bulbar duodenum and duodenal bulb were normal with normal mucosa and conniventes. The scope was withdrawn through a normal duodenal bulb and pylorus into the stomach. There was bile reflux with linear reactive gastropathy of the antrum. The remainder of the body and fundus of the stomach were grossly normal. Upon retroflexion there was no significant hiatal hernia. 2 biopsies were taken in the antrum and along the lesser curvature for histology to rule out gastritis and/or H pylori. The scope was then withdrawn into the esophagus. There was a serrated Z-line and biopsies were taken at the GE junction. There was no evidence of reflux esophagitis, Schatzki's ring, eosinophilic esophagitis or Almanza's. There were strong tertiary contractions and evidence of moderate esophageal dysmotility. The entire esophagus was dilated to 60 [place]/20 mm with a TTS hydrostatic balloon. There was some resistance at the cricopharyngeus. The remainder of the esophageal mucosa was normal. Impression: 1. Cricopharyngeal spasm status post dilation to 20 mm 2. Nonerosive GERD with moderate esophageal dysmotility 3. Bile reflux with linear reactive gastropathy of antrum Plan: I will follow-up the biopsies. The patient does have functional GERD with esophageal spasm/esophageal dyskinesia. This is driven by gas pressure gradients. This is resulting in her functional reflux and symptoms. This also formerly caused some functional dyspepsia. We will discuss dietary measures and treatment options. I would continue the present diet and fiber bowel regimen (combined MiraLAX plus Metamucil).
--- NOTE | 2020-07-22 09:15 | PC.NURSE ---
pt has hiccups
--- NOTE | 2020-07-22 16:09 | HMH.ANESCL ---
[facility] Anesthesia Checklist - Patient Identification Patient Identification: Arm Band - Structural Data Admitted From: Home Planned Operative Procedure/s: egd Consent for Planned Operative Procedure(s) Verified: Yes Verified Documents: Surgical Consent, History and Physical - NPO Status Verified Time NPO: 00:00 - Additional verifications Anesthesia Reactions: No Hx Blood Transfusions: Yes Blood Transfusion Reaction: Yes - Airway Assessment C-Spine Mobility Assessed: Yes (mp2) TMJ Mobility Assessed: Yes Dentition: Good Dentition - Neurological Assessment Level of Consciousness: Awake, Alert - Anesthesia Plan Anesthesia Risk discussed: Yes Anesthesia Plan: Verified ASA Class: II Anesthesia Type: MAC [facility] History I have reviewed the patient's past medical history: Yes Medical History: Reports:: Asthma, Hyperlipidemia, Hypertension, Palpitations Denies:: Cancer, Congestive Heart Failure, Chronic Obstructive Pulmonary Disease (COPD), Deep Vein Thrombosis, Diabetes Mellitus Type 1, Diabetes Mellitus Type 2, Internal Pacemaker, MRSA, Pulmonary Embolism, Seizures *Have you ever received a pneumonia vaccine?: No *Have you received a flu vaccine this season?: Yes Other Medical History: Reports: Blood Transfusion Reaction Anesthesia experience/problems:: nac Other Surgeries: Yes: Cholecystectomy, , Tubal Ligation, Other. No: Pacemaker Amputation: No Fractures: Yes (BACK) - *Social History Last grade of school completed: High school graduate Smoking Status: Former smoker #Yrs smoked (if former smoker): 10 Alcohol Intake: never Substance Use Type: denies use *Occupational Status:: employed Housing: house Household Members: spouse *Travel in the last 8 weeks: None Family Hx:: Asthma, Coronary Artery Disease, Diabetes, Hyperlipidemia
== END 2020-07-22 09:48 | disposition home or self-care (01) ==
LOC: OUTP 07:36
PROVIDERS: PCP Nurse Practitioner Family; Visit Provider Internal Medicine Gastroenterology
PROC: 0DJ08ZZ Inspection of Upper Intestinal Tract, Via Natural or Artificial Opening Endoscopic (ICD-10-PCS; CPT 43235; principal; 2020-07-22 08:30)
DX: J39.2 Other diseases of pharynx (principal); K21.9 Gastro-esophageal reflux disease without esophagitis; K22.4 Dyskinesia of esophagus; K31.9 Disease of stomach and duodenum, unspecified; Z87.19 Personal history of other diseases of the digestive system; J45.909 Unspecified asthma, uncomplicated; E78.5 Hyperlipidemia, unspecified; I10 Essential (primary) hypertension; R00.2 Palpitations; Z87.891 Personal history of nicotine dependence; Z82.5 Family history of asthma and other chronic lower respiratory diseases; Z83.3 Family history of diabetes mellitus; Z83.438 Family history of other disorder of lipoprotein metabolism and other lipidemia
CPT/HCPCS: 43239; 43249; 84703; C1726

== ENCOUNTER → 2020-08-22 07:51 | Outpatient (CLI) | payer BC, SELFPAY ==
[2020-08-22 08:17] LABS: Basophils # 0.1 K/mm3 (0-0.2); Basophils % 0.9 % (0.1-2.0); Eosinophils # 0.1 K/mm3 (0.0-0.4); Eosinophils % 2.4 % (0.1-12.0); Hematocrit 41.5 % (37.0-47.0); Hemoglobin 13.2 g/dL (12.2-16.2); Lymphocytes # 1.5 K/mm3 (0.7-4.5); Lymphocytes % 28.4 % (10-50); Mean Corpuscular HGB Conc 31.7 g/dL (31.8-35.4); Mean Corpuscular Hemoglobin 26.6 pg (27.0-31.2); Mean Corpuscular Volume 83.8 fl (81-99); Mean Platelet Volume 7.7 fl (7.4-10.4); Monocytes # 0.3 K/mm3 (0.1-1.0); Monocytes % 5.7 % (1.7-9.3); Neutrophils # 3.3 K/mm3 (1.8-7.8); Neutrophils % 62.6 % (37.0-80.0); Platelet Count 342 K/mm3 (142-424); Red Blood Count 4.96 M/mm3 (4.20-5.40); Red Cell Distribution Width 13.2 % (11.5-17.5); White Blood Count 5.3 K/mm3 (4.8-10.8)
[2020-08-22 08:55] LABS: Chloride 107 mmol/L (98-107); Potassium 4.6 mmoL/L (3.5-5.1); Sodium 140 mmol/L (136-145)
[2020-08-22 08:57] LABS: Alanine Aminotransferase 45 U/L (12-78); Anion Gap 11.6 mEq/L (5-15); Aspartate Amino Transferase 36 U/L (14-36); Blood Urea Nitrogen 11 mg/dl (7-17); Carbon Dioxide 26 mmol/L (22.0-30.0); Estimated Glomerular Filt Rate 82 ml/min (>60); GFR (African American) 99 ML/MIN (>60)
[2020-08-22 08:58] LABS: Albumin Level 4.5 g/dl (3.5-5.0); Albumin/Globulin Ratio 1.5 (1.1-1.8); Alkaline Phosphatase 99 U/L (38-126); Bilirubin,Total 0.4 mg/dl (0.2-1.3); Calcium 9.8 mg/dl (8.4-10.2); Chol/HDL Ratio 5.6 (1-3.5); Cholesterol 270 mg/dl (140-200); Glucose 105 mg/dl (74-100); HDL Cholesterol 48 mg/dl (40-60); Total Protein,Serum 7.5 g/dl (6.3-8.2); Triglycerides 297 mg/dl (30-150); VLDL Cholesterol 59 mg/dL (0-40)
[2020-08-22 09:14] LABS: Free T4 (Free Thyroxine) 0.93 ng/dl (0.78-2.19)
[2020-08-22 09:15] LABS: 25-OH Vitamin D, Total 20.9 ng/mL (30-100)
[2020-08-22 09:29] LABS: Thyroid Stimulating Hormone 1.98 uIU/mL (0.465-4.68)
== END ==
PROVIDERS: Visit Provider Emergency Medicine
DX: E66.9 Obesity, unspecified (principal); E55.9 Vitamin D deficiency, unspecified; I10 Essential (primary) hypertension; E78.5 Hyperlipidemia, unspecified; Z68.33 Body mass index [BMI] 33.0-33.9, adult
CPT/HCPCS: 36415; 80053; 80061; 82306; 84439; 84443; 85025

== ENCOUNTER → 2021-01-17 08:47 | Outpatient (CLI) | payer BC, SELFPAY ==
[2021-01-17 10:10] LABS: Alanine Aminotransferase 58 U/L (12-78); Albumin Level 4.6 g/dl (3.5-5.0); Albumin/Globulin Ratio 1.4 (1.1-1.8); Alkaline Phosphatase 82 U/L (38-126); Anion Gap 15.4 mEq/L (5-15); Aspartate Amino Transferase 32 U/L (14-36); Bilirubin,Total 0.4 mg/dl (0.2-1.3); Blood Urea Nitrogen 18 mg/dl (7-17); Calcium 9.5 mg/dl (8.4-10.2); Carbon Dioxide 26 mmol/L (22.0-30.0); Chloride 104 mmol/L (98-107); Chol/HDL Ratio 6.1 (1-3.5); Cholesterol 257 mg/dl (140-200); Estimated Glomerular Filt Rate 82 ml/min (>60); GFR (African American) 99 ML/MIN (>60); Globulin 3.2 g/dL (1.3-3.2); Glucose 102 mg/dl (74-100); HDL Cholesterol 42 mg/dl (40-60); Potassium 4.4 mmoL/L (3.5-5.1); Sodium 141 mmol/L (136-145); Total Protein,Serum 7.8 g/dl (6.3-8.2); Triglycerides 220 mg/dl (30-150); VLDL Cholesterol 44 mg/dL (0-40)
[2021-01-17 10:21] LABS: Direct LDL Cholesterol 158.51 mg/dL (100-129)
[2021-01-17 10:28] LABS: 25-OH Vitamin D, Total 49.3 ng/mL (30-100)
[2021-01-17 16:58] LABS: Hemoglobin A1C 5.1 % (4.0-6.0)
== END ==
PROVIDERS: Visit Provider Nurse Practitioner Family
DX: Z00.00 Encounter for general adult medical examination without abnormal findings (principal); E78.2 Mixed hyperlipidemia; E55.9 Vitamin D deficiency, unspecified; Z79.899 Other long term (current) drug therapy
CPT/HCPCS: 36415; 80053; 80061; 82306; 83036

== ENCOUNTER → 2021-04-01 11:59 | Outpatient (CLI) | payer BC, SELFPAY ==
[2021-04-01 12:30] LABS: Coronavirus 19, PCR Not Detected (NotDetected); Influenza A, PCR Not Detected (NotDetected); Influenza B, PCR Not Detected (NotDetected)
== END ==
PROVIDERS: PCP Internal Medicine Adolescent Medicine; Visit Provider Internal Medicine Adolescent Medicine
DX: Z20.822 Contact with and (suspected) exposure to COVID-19 (principal)
CPT/HCPCS: C9803; U0003; U0005

== ENCOUNTER → 2021-04-02 14:21 | Outpatient (CLI) | payer BC, SELFPAY ==
[2021-04-02 15:24] LABS: Coronavirus 19, PCR Not Detected (NotDetected); Influenza A, PCR Not Detected (NotDetected); Influenza B, PCR Not Detected (NotDetected)
== END ==
PROVIDERS: PCP Internal Medicine Adolescent Medicine; Visit Provider Internal Medicine Adolescent Medicine
DX: Z20.822 Contact with and (suspected) exposure to COVID-19 (principal); R68.89 Other general symptoms and signs; R43.0 Anosmia
CPT/HCPCS: C9803; U0003; U0005

== ENCOUNTER → 2021-06-08 08:18 | Outpatient (CLI) | payer BC, SELFPAY | PROVIDERS: PCP Nurse Practitioner Family; Visit Provider Nurse Practitioner | DX: Z20.822 Contact with and (suspected) exposure to COVID-19 (principal) | CPT/HCPCS: C9803; U0003; U0005 ==

== ENCOUNTER → 2021-06-16 11:14 | Outpatient (CLI) | payer BC, SELFPAY | PROVIDERS: PCP Internal Medicine Adolescent Medicine; Visit Provider Internal Medicine Adolescent Medicine | DX: U07.1 COVID-19 (principal); R52 Pain, unspecified | CPT/HCPCS: C9803; U0003; U0005 ==

== ENCOUNTER 2021-07-21 18:15 | Emergency (ER) | payer BC, SELFPAY ==
--- NOTE | 2021-07-21 18:07 | ECG_ITS ---
APPROVED REPORT Exam: Resting ECG HR:102 bpm ECG Measurements Heart Rate 102 AXES MT 128 P 66 QRSd 91 QRS 0 QT 333 T 47 QTc 392 Conclusion SINUS TACHYCARDIA LOW QRS VOLTAGE IN PRECORDIAL LEADS [QRS DEFLECTION < 1.0 mV IN CHEST LEADS] ABNORMAL RHYTHM ECG UNCONFIRMED REPORT Electronically signed by : Bartolome Shelton MD 07/22/2021 08:30:00
[2021-07-21 18:15] VITALS: BP 153/105; PULSE 111; RESP 20; TEMP 37.2; O2SAT 98; BMI 35.6
--- NOTE | 2021-07-21 18:26 | XR_ITS ---
PROCEDURE INFORMATION: Exam: XR Chest Exam date and time: 07/21/2021 6:26 PM Age: 35 years old Clinical indication: Sternal or substernal pain; Prior surgery; Surgery date: 6+ months; Surgery type: Back surgery TECHNIQUE: Imaging protocol: XR of the chest. Views: 1 view. Total images: 1 COMPARISON: CR XR CHEST 2V 06/27/2019 10:53 AM FINDINGS: Lungs: Normal pulmonary expansion. Pulmonary vasculature grossly normal. No gross pulmonary infiltrates or edema pattern. Pleural spaces: No pleural effusion. No pneumothorax. Heart/Mediastinum: Heart size normal. No tracheal/mediastinal shift. Bones/joints: Thoracic spinal fusion hardware without gross complication or change. No acute osseous abnormalities are identified. IMPRESSION: No acute thoracic process.
[2021-07-21 18:31] LABS: Basophils % 0.7 % (0.1-2.0); Eosinophils # 0.1 K/mm3 (0.0-0.4); Eosinophils % 1.6 % (0.1-12.0); Hematocrit 40.6 % (37.0-47.0); Hemoglobin 13.4 g/dL (12.2-16.2); Mean Corpuscular Hemoglobin 27.5 pg (27.0-31.2); Mean Corpuscular Volume 83.4 fl (81-99); Mean Platelet Volume 7.5 fl (7.4-10.4); Monocytes # 0.3 K/mm3 (0.1-1.0); Monocytes % 5.2 % (1.7-9.3); Neutrophils # 4.2 K/mm3 (1.8-7.8); Neutrophils % 62.6 % (37.0-80.0); Platelet Count 373 K/mm3 (142-424); Red Blood Count 4.87 M/mm3 (4.20-5.40); Red Cell Distribution Width 12.8 % (11.5-17.5); White Blood Count 6.6 K/mm3 (4.8-10.8)
--- NOTE | 2021-07-21 18:31 | HMH.EDCP ---
ED Disposition Clinical Impression: Atypical chest pain GERD (gastroesophageal reflux disease) Qualifiers: Esophagitis presence: without esophagitis Qualified Code(s): K21.9 - Gastro-esophageal reflux disease without esophagitis Disposition: Home, Self-Care Condition on Discharge: Good Instructions: DI for Atypical Chest Pain Prescriptions: Mag Hydrox/Aluminum Hyd/Simeth [Maalox Advanced Suspension] 10 ml PO QID #150 ml Transmission Status: Pending to [id number] Referrals: Provider,MD Lorena [Referring] - Alex Casas MD [Staff Physician] - - Critical Care Critical Care Time: No Attestation: On 07/21/21, the high probability of a clinically significant, sudden or life threatening deterioration of the following system(s) required my full and direct attention, intervention and personal management. The time I documented below is in addition to time spent performing reported procedures but includes the following listed in this critical care notation. Medical Decision Making - Medical Records Medical records reviewed: Yes: I reviewed the patient's medical records. - [place] Inquiry Pt receiving controlled substance: No Vital Signs: 07/21/21 18:15 Temperature 99 F Temperature Source Oral Pulse Rate [Radial] 111 H Respiratory Rate 20 Blood Pressure [Right Arm] 153/105 H Blood Pressure Mean [Right Arm] 121 Blood Pressure Position [Right Arm] Sitting 02 Sat by Pulse Oximetry 98 Oxygen Delivery Method Room Air - Lab Data Lab Results 07/21/21 18:15: WBC 6.6, RBC 4.87, Hgb 13.4, Hct 40.6, MCV 83.4, MCH 27.5, MCHC 33.0, RDW 12.8, Plt Count 373, MPV 7.5, Neut % (Auto) 62.6, Lymph % (Auto) 30.0, [place] % (Auto) 5.2, Eos % (Auto) 1.6, Baso % (Auto) 0.7, Neut # (Auto) 4.2, Lymph # (Auto) 2.0, [place] # (Auto) 0.3, Eos # (Auto) 0.1, Baso # (Auto) 0.0 07/21/21 18:15: Sodium 138, Potassium 3.4 L, Chloride 102, Carbon Dioxide 26, Anion Gap 13.4, BUN 10, Creatinine 0.80, Estimated Creat Clear 141, Estimated GFR 82, Est GFR ( Amer) 99, Glucose 116 H, Calcium 9.9, Total Bilirubin 0.4, AST 37 H, ALT 28, Alkaline Phosphatase 90, Troponin I < 0.01, Total Protein 8.4 H, Albumin 4.9, Globulin 3.5 H, Albumin/Globulin Ratio 1.4, Lipase 96 Result diagrams: 07/21/21 18:15 07/21/21 18:15 Orders (Tests/Meds): ED MEDICATIONS Generic Name Dose Route Start Last Admin Trade Name Freq PRN Reason Stop Dose Admin Sodium Chloride 1,000 mls @ 999 mls/hr 07/21/21 18:30 07/21/21 19:11 Sod Chlor 0.9% 1000ml Bag IV 07/21/21 19:30 999 mls/hr .Q1H1M TANK Administration Sodium Chloride 8 ml 07/21/21 18:29 Sodium Chloride 0.9% 10ml Vial IV 08/20/21 18:28 NEEDED PRN dilute pepcid Discontinued Medications Generic Name Dose Route Start Last Admin Trade Name Freq PRN Reason Stop Dose Admin Famotidine 20 mg 07/21/21 18:29 07/21/21 19:10 Famotidine 20mg/2ml Vial IV 07/21/21 18:30 20 mg ONCE ONE Administration Ondansetron HCl 4 mg 07/21/21 18:29 07/21/21 19:10 Ondansetron 4mg/2ml Vial IV 07/21/21 18:30 4 mg ONCE ONE Administration ORDERS Category Date Time Status Troponin I Q3H Lab 07/21/21 21:30 Ordered Troponin I Q3H Lab 07/22/21 00:30 Ordered - Radiology Data #1 Image(s): Chest Image Reviewed: Yes I reviewed the patient's radiology results, Yes I reviewed the patient's radiology image, Yes I have reviewed radiologist's interpretation Preliminary Findings: Normal/NAD - ECG Data Tracing #1 I reviewed this ECG and interpreted as documented below: Tachycardic rate of 102 bpm, normal [place] interval of 120 ms, normal QTC. Sinus tachycardia with nonspecific changes ECG initial impression date: 07/21/21 ECG initial impression time: 18:07 - Reevaluation(s) Time: 19:33 Reevaluation #1: On reevaluation, the patient is feeling much better. Troponin negative. EKG unremarkable. Findings consistent with acute gastritis. Patient needs fol
[2021-07-21 18:45] LABS: Alanine Aminotransferase 28 U/L (12-78); Albumin Level 4.9 g/dl (3.5-5.0); Albumin/Globulin Ratio 1.4 (1.1-1.8); Alkaline Phosphatase 90 U/L (38-126); Anion Gap 13.4 mEq/L (5-15); Aspartate Amino Transferase 37 U/L (14-36); Bilirubin,Total 0.4 mg/dl (0.2-1.3); Blood Urea Nitrogen 10 mg/dl (7-17); Calcium 9.9 mg/dl (8.4-10.2); Carbon Dioxide 26 mmol/L (22.0-30.0); Chloride 102 mmol/L (98-107); Creatinine Clearance Estimated 141 mL/min (50-200); Estimated Glomerular Filt Rate 82 ml/min (>60); GFR (African American) 99 ML/MIN (>60); Globulin 3.5 g/dL (1.3-3.2); Glucose 116 mg/dl (74-100); Lipase 96 U/L (23-300); Potassium 3.4 mmoL/L (3.5-5.1); Sodium 138 mmol/L (136-145); Total Protein,Serum 8.4 g/dl (6.3-8.2)
[2021-07-21 19:02] LABS: Troponin I < 0.01 ng/ml (0.00-0.034)
[2021-07-21 19:55] VITALS: BP 122/84; PULSE 83; RESP 14; TEMP 37.1; O2SAT 99
== END 2021-07-21 20:19 | disposition home or self-care (01) ==
PROVIDERS: Emergency Provider Emergency Medicine; PCP Nurse Practitioner Family
DX: R07.89 Other chest pain (principal); K29.00 Acute gastritis without bleeding; I10 Essential (primary) hypertension; E78.5 Hyperlipidemia, unspecified; Z88.0 Allergy status to penicillin
CPT/HCPCS: 71045; 80053; 83690; 84484; 85025; 93005; 96365; 96375; 99283; J2405

== ENCOUNTER → 2021-07-26 13:23 | Outpatient (CLI) | payer BC, SELFPAY ==
--- NOTE | 2021-07-26 13:25 | CA_ITS ---
APPROVED REPORT EXAM: Comprehensive 2D, Doppler, and color-flow Echocardiogram Dining Car Server: Charley Harmon CRT Ht: 5 ft 3 in Wt: 201lbs BSA: 1.94 BP: 116/83 mmHg Indications: Abnormal ECG, Chest Pain, Shortness of Breath, Obesity, Hyperlipidemia 2D Dimensions LVOT 1.88 cm (M/F) 1.5-2.5 LA Volume 34.70 mL LA Volume Index 17.90 mL/m2 (M/F) 16-34 M-Mode Dimensions RVDd 2.97 cm (0.9-2.6) LA Diam 3.37 cm (1.9-4.0) LVDd 2.93 cm (3.5-5.7) Ao Diam 3.06 cm (2.0-3.7) LVDs 2.12 cm (3.5-5.7) IVSd 0.97 cm (0.6-1.1) PWd 0.94 cm (0.6-1.1) EF (Teich) 55.20% FS 27.60% EDV (Teich) 33.00 mL TAPSE 2.18 (<1.7) ESV (Teich) 14.80 mL LV Diastology E Decel Time 177.00 (160-240 msec) E/A Ratio 1.11 MED E' 9.90 (< 7 cm/sec) MED A' 8.30 cm/s E'/MED E' Ratio 7.10 (>14) LAT E' 12.30 (<10 cm/sec) LAT A' 9.70 cm/s E/LAT E' Ratio 5.72 (>14) Aortic Valve AO Peak GR. 6.40 mmHg Mitral Valve MV E Max Govind. 70.00 (40-130 cm/s) MV A Velocity 64.00 (40-130 cm/s) E/A Ratio 1.11 MV Decel. Time 177.00 (160-240 ms) MV PHT 52.00 ms Pulmonary Valve PV Peak Velocity 90.00 (50-150 cm/s) Tricuspid Valve TR P. Velocity 176.00 cm/s RAP Estimate 10.00 mmHg RVSP 22.40 mmHg Left Ventricle Left atrium normal size, left ventricle is normal size, there is no concentric left ventricular hypertrophy, visually estimated ejection fraction 55% with no regional wall motion abnormality, diastolic parameters are within normal range. Right Ventricle Right atrium and right ventricle are normal size and contractility. Aortic Valve Aortic valve is grossly normal, there is no aortic stenosis or aortic insufficiency. Mitral Valve Mitral valve grossly normal, there is trace mitral regurgitation. Tricuspid Valve Tricuspid valve grossly normal, there is trace tricuspid regurgitation, tricuspid regurgitation jet is inadequate for calculation of the right ventricular systolic pressure. Pulmonic Valve Pulmonic valve is poorly visualized. Great Vessels Aortic root is normal size. Inferior vena cava normal size with normal inspiratory collapse. Pericardium No significant pericardial effusion noted. Conclusion 1. Normal left ventricular size, preserved left ventricular systolic function, visually estimated ejection fraction 55% with no regional wall motion abnormality, diastolic parameters are within normal range. 2. Trace mitral and tricuspid regurgitation. 3. No significant pericardial effusion. 4. Inferior vena cava is normal size with normal inspiratory collapse. Electronically signed by : Chin Mancuso MD 07/26/2021 20:16:19
== END ==
LOC: RT 13:25
PROVIDERS: PCP Internal Medicine Adolescent Medicine; Visit Provider Physician Assistant
DX: R06.00 Dyspnea, unspecified (principal); R07.9 Chest pain, unspecified; R94.31 Abnormal electrocardiogram [ECG] [EKG]; E78.5 Hyperlipidemia, unspecified
CPT/HCPCS: 93306

== ENCOUNTER → 2021-08-22 07:51 | Outpatient (CLI) | payer BC, SELFPAY ==
[2021-08-22 09:25] LABS: Alanine Aminotransferase 25 U/L (12-78); Albumin Level 4.2 g/dl (3.5-5.0); Alkaline Phosphatase 85 U/L (38-126); Aspartate Amino Transferase 26 U/L (14-36); Bilirubin,Direct 0.1 mg/dl (0.0-0.4); Bilirubin,Indirect 0.2 mg/dL (0.0-0.9); Bilirubin,Total 0.3 mg/dl (0.2-1.3); Bilirubin,Unconjugated 0.2 mg/dL (0.0-1.1); Chol/HDL Ratio 3.6 (1-3.5); Cholesterol 153 mg/dl (140-200); HDL Cholesterol 42 mg/dl (40-60); Total Protein,Serum 6.9 g/dl (6.3-8.2); Triglycerides 205 mg/dl (30-150); VLDL Cholesterol 41 mg/dL (0-40)
[2021-08-22 09:36] LABS: Direct LDL Cholesterol 68.11 mg/dL (100-129)
== END ==
PROVIDERS: Visit Provider Physician Assistant
DX: R06.00 Dyspnea, unspecified (principal); R07.9 Chest pain, unspecified; E78.5 Hyperlipidemia, unspecified
CPT/HCPCS: 80061; 80076

== ENCOUNTER → 2021-08-22 08:25 | Outpatient (POV) | payer BC, SELFPAY | PROVIDERS: Visit Provider Dermatology | DX: Z00.00 Encounter for general adult medical examination without abnormal findings (principal) ==

== ENCOUNTER → 2021-09-29 20:20 | Outpatient (CLI) | payer BC, SELFPAY ==
--- NOTE | 2021-09-29 21:04 | XR_ITS ---
PROCEDURE INFORMATION: Exam: XR Chest Exam date and time: 09/29/2021 8:57 PM Age: 35 years old Clinical indication: Shortness of breath; Additional info: SOB asthma TECHNIQUE: Imaging protocol: XR of the chest. Views: 2 views. Total images: 2 COMPARISON: CR XR CHEST PORTABLE 07/21/2021 6:40 PM FINDINGS: Lungs: Normal pulmonary expansion. Pulmonary vasculature grossly normal. No gross pulmonary infiltrates or edema pattern. Pleural spaces: No pleural effusion. No pneumothorax. Heart/Mediastinum: Heart size normal. No tracheal/mediastinal shift. Bones/joints: No acute osseous abnormalities are identified. Thoracic spinal fixation hardware without gross hardware complication or change. IMPRESSION: No acute thoracic process.
== END ==
PROVIDERS: PCP Nurse Practitioner Family; Visit Provider Nurse Practitioner
DX: R06.02 Shortness of breath (principal); J45.909 Unspecified asthma, uncomplicated
CPT/HCPCS: 71046

== ENCOUNTER → 2023-01-07 06:30 | Outpatient (CLI) | payer BC, SELFPAY ==
[2023-01-07] VITALS (7 sets, daily range): BP systolic 93–109; BP diastolic 59–71; PULSE 66–77; RESP 18; TEMP 36.7; O2SAT 96–100; BMI 33.5
[2023-01-07 07:09] LABS: Urine Pregnancy, HCG Qual. Negative (Negative)
[2023-01-07 07:17] LABS: Blood Urea Nitrogen 10 mg/dl (7-17); Calcium 8.7 mg/dl (8.4-10.2); Carbon Dioxide 23 mmol/L (22.0-30.0); Chloride 105 mmol/L (98-107); Creatinine Clearance Estimated 130 mL/min (50-200); Estimated Glomerular Filt Rate 81 ml/min (>60); GFR (African American) 98 ML/MIN (>60); Glucose 106 mg/dl (74-100); Sodium 139 mmol/L (136-145)
== END ==
PROVIDERS: PCP Internal Medicine Adolescent Medicine; Visit Provider Internal Medicine
DX: R06.00 Dyspnea, unspecified (principal); R07.89 Other chest pain; E78.5 Hyperlipidemia, unspecified; F41.1 Generalized anxiety disorder; K21.9 Gastro-esophageal reflux disease without esophagitis; E66.9 Obesity, unspecified; Z68.33 Body mass index [BMI] 33.0-33.9, adult; Z82.49 Family history of ischemic heart disease and other diseases of the circulatory system
CPT/HCPCS: 75574; 80048; 81025; Q9967

== ENCOUNTER → 2023-03-28 08:03 | Outpatient (CLI) | payer OTHER, BC, SELFPAY ==
[2023-03-28 09:10] LABS: Erythrocyte Sedimentation Rate 22 mm/hr (0-20)
[2023-03-28 09:42] LABS: Alanine Aminotransferase 34 U/L (12-78); Albumin Level 4.5 g/dl (3.5-5.0); Albumin/Globulin Ratio 1.6 (1.1-1.8); Alkaline Phosphatase 70 U/L (38-126); Anion Gap 15.5 mEq/L (5-15); Aspartate Amino Transferase 38 U/L (14-36); Bilirubin,Total 0.3 mg/dl (0.2-1.3); Blood Urea Nitrogen 12 mg/dl (7-17); Calcium 9.4 mg/dl (8.4-10.2); Carbon Dioxide 24 mmol/L (22.0-30.0); Chloride 104 mmol/L (98-107); Chol/HDL Ratio 3.2 (1-3.5); Cholesterol 114 mg/dl (140-200); Estimated Glomerular Filt Rate 81 ml/min (>60); GFR (African American) 98 ML/MIN (>60); Globulin 2.8 g/dL (1.3-3.2); Glucose 101 mg/dl (74-100); HDL Cholesterol 36 mg/dl (40-60); Potassium 4.5 mmoL/L (3.5-5.1); Sodium 139 mmol/L (136-145); Total Protein,Serum 7.3 g/dl (6.3-8.2); Triglycerides 192 mg/dl (30-150); VLDL Cholesterol 38 mg/dL (0-40)
[2023-03-28 09:53] LABS: C-Reactive Protein 3.2 mg/L (0-4); Direct LDL Cholesterol 57.16 mg/dL (100-129)
[2023-03-28 09:59] LABS: 25-OH Vitamin D, Total 59.8 ng/mL (30-100)
[2023-03-28 10:13] LABS: Thyroid Stimulating Hormone 1.21 uIU/mL (0.465-4.68)
[2023-03-28 10:32] LABS: Vitamin B12 896 pg/mL (239-931)
[2023-03-29 14:32] LABS: Anti-Cyclic Citrullinated Pept 3 units (0-19)
[2023-04-01 12:10] LABS: Antinuclear Antibodies, IFA Negative (.)
== END ==
PROVIDERS: PCP Nurse Practitioner Family; Visit Provider Nurse Practitioner Family
DX: Z00.00 Encounter for general adult medical examination without abnormal findings (principal); E78.2 Mixed hyperlipidemia; R53.83 Other fatigue; M25.50 Pain in unspecified joint; E55.9 Vitamin D deficiency, unspecified
CPT/HCPCS: 36415; 80053; 80061; 82306; 82607; 84443; 85651; 86038; 86140; 86200

== ENCOUNTER 2023-04-01 10:27 | Emergency (ER) | payer OTHER, BC, SELFPAY ==
[2023-04-01 10:28] VITALS: BP 129/88; PULSE 76; RESP 18; TEMP 36.6; O2SAT 99; BMI 32.4
[2023-04-01 10:46] VITALS: BP 117/77; PULSE 76; RESP 18; O2SAT 98
[2023-04-01 11:01] VITALS: BP 110/73; PULSE 82; RESP 18; O2SAT 98
--- NOTE | 2023-04-01 11:14 | CT_ITS ---
FINAL REPORT TECHNIQUE: Thin section axial images were obtained from the thoracic inlet through the upper abdomen after intravenous contrast injection. Reconstruction images were obtained from the axial data. Exam was performed using dose reduction technique. CLINICAL HISTORY: globus sensation FINDINGS: There is no mediastinal, hilar, or axillary lymphadenopathy. There is no pleural or pericardial effusion. Evidence of old granulomatous disease. The lungs are otherwise clear. Limited evaluation of the upper abdomen demonstrates mild wall thickening of the hepatic flexure of the colon which could be related to peristalsis. Otherwise, no acute upper abdominal abnormality. No acute osseous abnormality. IMPRESSION: No acute intrathoracic abnormality. Reviewed, Interpreted and Dictated by Leah Hillman MD Transcribed by Barbi Randolph Authenticated and [facility]
[2023-04-01 11:15] VITALS: BP 111/78; PULSE 73; RESP 20
--- NOTE | 2023-04-01 11:18 | HMH.EDGENADL ---
Discharge Plan Disposition Patient Disposition: Home, Self-Care Prescriptions Prescriptions: No Action tizanidine 2 mg capsule 4 mg PO HS PRN (Reason: .) meloxicam 7.5 mg tablet 15 mg PO DAILY PRN (Reason: Pain) Patient Comments: TAKE 1 TABLET BY MOUTH ONCE DAILY propranolol 10 mg tablet 10 mg PO ONCE famotidine 20 mg tablet 20 mg PO DAILY escitalopram oxalate 10 mg tablet 10 mg PO DAILY Patient Comments: TAKE 1 TABLET BY MOUTH ONCE DAILY rosuvastatin 10 mg tablet 20 mg PO HS Patient Comments: TAKE 1 TABLET BY MOUTH ONCE DAILY levocetirizine 5 mg tablet 5 mg PO DAILY lorazepam [Ativan] 0.5 mg tablet 0.5 mg PO BID PRN (Reason: anxiety) Qty: 30 0RF tizanidine 4 mg tablet 4 mg PO HS pantoprazole 40 MG tablet,delayed release (DR/EC) 40 mg PO DAILY Rx Instructions: TAKE 1 TABLET BY MOUTH ONCE DAILY FOR GERD Referrals Follow up/Referrals: Noni Payne APRN [Primary Care Provider] - See instructions Shaka Malik MD [Staff Physician] - See instructions Activity Restrictions/Add. Instructions Additional Instructions/Restrictions: At this time it was felt you are safe to be discharged home. If new or worsening symptoms please do not hesitate to return the emergency department. Call and schedule an appointment with Dr. Malik as soon as you are able. Clinical Impressions Clinical Impression: Foreign body sensation in throat Discharge ED Provider: Brian Owens General Adult HPI General Chief complaint: Dental/Oral Stated complaint: trouble swallowing, feeling something is stuck Time Seen by Provider: 04/01/23 11:00 Mode of Arrival: Ambulatory Limitations: No Limitations Description of Symptoms (Recalled from ER Triage Doc. by RN): PT REPORTS DIFFICULTY SWALLOWING THAT STARTED SATURDAY NIGHT. REPORTS TAKING MEDICATION AND HAVING SOME POPCORN. PT HAS BEEN ABLE TO SWALLOW LIQUID AND TOLERATE YOGURT AND A BANANA. REPORTS A LUMP IN MY THROAT PT DENIES ANY DIFFIUCLTY BREATHING History of Present Illness HPI narrative: Patient is a 37-year-old female past medical history of gastritis who presents emergency department for evaluation of foreign body sensation in her throat. Occurrence was Saturday, no particular preceding event. Since then she has only been able to tolerate liquids and soft foods, has avoided solids. Patient has feeling of her throat closing at the level of her larynx whenever she swallows. No difficulty breathing. No vomiting. No other acute complaints at this time. Related Data Home Medications Medication Instructions Recorded Confirmed pantoprazole 40 mg tablet,delayed 40 mg PO DAILY GERD 06/27/19 01/06/23 release tizanidine 2 mg capsule 4 mg PO HS PRN . 04/12/22 01/06/23 levocetirizine 5 mg tablet 5 mg PO DAILY . 11/08/22 01/06/23 meloxicam 7.5 mg tablet 15 mg PO DAILY PRN Pain 11/08/22 01/06/23 escitalopram oxalate 10 mg tablet 10 mg PO DAILY mood 12/26/22 01/06/23 famotidine 20 mg tablet 20 mg PO DAILY stomach 12/26/22 01/06/23 propranolol 10 mg tablet 10 mg PO ONCE bp 12/26/22 01/06/23 rosuvastatin 10 mg tablet 20 mg PO HS Cholesterol 12/26/22 01/06/23 tizanidine 4 mg tablet 4 mg PO HS 01/31/23 01/31/23 Previous Rx's Medication Instructions Recorded lorazepam 0.5 mg tablet (Ativan) 0.5 mg PO BID PRN anxiety #30 tabs 12/10/22 Allergies Allergy/AdvReac Type Severity Reaction Status Date / Time penicillin G Allergy Unknown Verified 01/31/23 09:34 Penicillins Allergy Unknown Verified 01/31/23 09:34 cefaclor [From Ceclor] Allergy Unknown Verified 01/31/23 09:[address] [facility] Disclaimer: The information contained in this section may have been updated after the patient was seen, as this information can be updated by other users. Medical History Anxiety Asthma Generalized anxiety disorder GERD (gastroesop
[2023-04-01 11:40] LABS: Basophils % 0.4 % (0.1-2.0); Eosinophils # 0.1 K/mm3 (0.0-0.4); Eosinophils % 1.8 % (0.1-12.0); Hematocrit 37.6 % (37.0-47.0); Hemoglobin 12.9 g/dL (12.2-16.2); Lymphocytes # 1.7 K/mm3 (0.7-4.5); Lymphocytes % 31.5 % (10-50); Mean Corpuscular HGB Conc 34.4 g/dL (31.8-35.4); Mean Corpuscular Hemoglobin 28.9 pg (27.0-31.2); Mean Platelet Volume 7.9 fl (7.4-10.4); Monocytes # 0.3 K/mm3 (0.1-1.0); Monocytes % 4.9 % (1.7-9.3); Neutrophils # 3.4 K/mm3 (1.8-7.8); Neutrophils % 61.4 % (37.0-80.0); Platelet Count 335 K/mm3 (142-424); Red Blood Count 4.48 M/mm3 (4.20-5.40); Red Cell Distribution Width 12.5 % (11.5-17.5); White Blood Count 5.5 K/mm3 (4.8-10.8)
[2023-04-01 11:56] LABS: Chloride 104 mmol/L (98-107); Sodium 137 mmol/L (136-145)
[2023-04-01 11:57] LABS: Potassium 4.1 mmoL/L (3.5-5.1)
[2023-04-01 11:59] LABS: Alanine Aminotransferase 33 U/L (12-78); Albumin Level 4.6 g/dl (3.5-5.0); Albumin/Globulin Ratio 1.4 (1.1-1.8); Alkaline Phosphatase 73 U/L (38-126); Anion Gap 11.1 mEq/L (5-15); Aspartate Amino Transferase 35 U/L (14-36); Bilirubin,Total 0.2 mg/dl (0.2-1.3); Blood Urea Nitrogen 12 mg/dl (7-17); Carbon Dioxide 26 mmol/L (22.0-30.0); Creatinine Clearance Estimated 144 mL/min (50-200); Estimated Glomerular Filt Rate 94 ml/min (>60); GFR (African American) 114 ML/MIN (>60); Globulin 3.2 g/dL (1.3-3.2); Total Protein,Serum 7.8 g/dl (6.3-8.2)
--- NOTE | 2023-04-01 11:59 | CT_ITS ---
FINAL REPORT TECHNIQUE: Thin section axial CT images with coronal reformats were obtained through the neck after the administration of IV contrast. This study was performed with techniques to keep radiation doses as low as reasonably achievable (ALARA). Individualized dose reduction techniques using automated exposure control or adjustment of mA and/or kV according to the patient''s size were employed. CLINICAL HISTORY: sensation stuck in throat FINDINGS: The nasopharynx, oropharynx, epiglottis and larynx are unremarkable. There is no lymphadenopathy or fluid collection. There is a subcentimeter, hypodense right thyroid lobe nodule. Salivary glands are without acute abnormality. Paranasal sinuses are clear. There is no acute osseous abnormality. IMPRESSION: No acute process. Reviewed, Interpreted and Dictated by Leah Hillman MD Transcribed by Barbi Randolph Authenticated and [facility]
[2023-04-01 12:00] LABS: Glucose 99 mg/dl (74-100)
[2023-04-01 12:29] LABS: HCG Qualitative, Serum Negative (Negative)
[2023-04-01 12:31] LABS: Thyroid Stimulating Hormone 1.05 uIU/mL (0.465-4.68)
--- NOTE | 2023-04-01 12:33 | PC.NURSE ---
Pt gone to RAD via wheelchair
--- NOTE | 2023-04-01 12:48 | PC.NURSE ---
BACK FROM CT
[2023-04-01 13:30] VITALS: BP 107/74; PULSE 83; RESP 18; O2SAT 100
[2023-04-01 14:26] VITALS: BP 140/78; PULSE 78; RESP 20; TEMP 36.7
== END 2023-04-01 14:27 | disposition home or self-care (01) ==
PROVIDERS: Emergency Provider Emergency Medicine; PCP Nurse Practitioner Family
DX: R09.A2 Foreign body sensation, throat (principal); J45.909 Unspecified asthma, uncomplicated; K21.9 Gastro-esophageal reflux disease without esophagitis; E78.5 Hyperlipidemia, unspecified; F41.1 Generalized anxiety disorder; F33.9 Major depressive disorder, recurrent, unspecified; Z87.891 Personal history of nicotine dependence
CPT/HCPCS: 70491; 71260; 80053; 84443; 84703; 85025; 99284; Q9967

== ENCOUNTER 2023-04-09 06:34 | Day surgery (SDC) | payer OTHER, BC, SELFPAY ==
[2023-04-05 13:24] VITALS: BMI 32.5
[2023-04-09 07:12] VITALS: BP 113/76; PULSE 79; RESP 18; TEMP 36.8; O2SAT 96
--- NOTE | 2023-04-09 07:18 | HMH.SCOPE ---
Procedure: Date: 04/09/23 Patient Date of :: 1985 Procedure Performed:: Esophagogastroduodenoscopy with biopsy Indications:: Dysphagia Note: Esophagogastroduodenoscopy in March 2021 (Dr. Ayaz King) revealed cricopharyngeal spasm (dilation 20 mm), moderate dysmotility, and bile reflux. Performing Provider:: Shaka Malik MD Referring Provider:: . Sedation:: Monitored anesthesia care Procedure:: After informed consent was obtained the patient was taken to the endoscopy suite. Sedation ensued after the patient was transferred to the left lateral decubitus position. Pulse, blood pressure, and oxygen saturation were monitored throughout the procedure. The endoscope was advanced beyond the duodenal bulb. Retroflexion within the gastric lumen was accomplished. The gastroscope was carefully removed and the patient was transferred to recovery in stable condition. Please see findings and specimens below for detail. Findings:: Mildly patulous esophagus Gastroesophageal junction displaced at 34 cm Shallow sliding hiatal hernia Distal patchy gastritis Specimens:: Antral biopsy Recommendations:: Follow-up pathology Consider barium swallow and likely modified barium swallow Complications:: No immediate Estimated blood obtained (mL): 1 Colonoscopy Component Colonoscopy Component Was a colonoscopy performed during today's procedure?: No
[2023-04-09 07:19] LABS: Urine Pregnancy, HCG Qual. Negative (Negative)
--- NOTE | 2023-04-09 07:20 | P.PNANES_ITS ---
[facility] Disclaimer: The information contained in this section may have been updated after the patient was seen, as this information can be updated by other users. Medical History Anxiety Asthma Generalized anxiety disorder GERD (gastroesophageal reflux disease) HLD (hyperlipidemia) Major depressive disorder Surgical History History of back surgery History of History of endometrial ablation Family History Other Family history of cardiac disorder Family history of diabetes mellitus Family history of hyperlipidemia Family history of hypertension Social History Smoking Status: Never smoker how long ago did patient quit smoking: quit cigarettes about 10-12 years ago; just picked up vaping quit status: has quit before second hand exposure: No alcohol intake: never counseling given: Yes counseling provided: provider counseling substance use type: denies use and marijuana counseling given: No (has not smoked pot since she was 19 years old) counseling provided: none current occupational status: employed Travel in the last 8 weeks: None adopted: No caregiver/support person: No foster care: No household members: spouse housing: house lives independently: Yes marital status: number of children: 2 number of grandchildren: 0 education level: college service: No snf: No current occupation: [employer] current occupational exposures/hazards: No pets and animals: Yes pets and animals: dog(s) Hx Recent Travel: No sexually active: Yes caffeine: Yes physical activity: none working smoke detector in home: Yes fire extinguisher in home: No carbon monox detector in home: Yes firearms in home: Yes firearms unloaded and locked: Yes do you feel safe at home: Yes victim of physical abuse: No victim of emotional abuse: No victim of sexual abuse: No would you like helpful sources: No [facility] Anesthesia Checklist Patient Identification Patient Identification: Arm Band and Verbal (Name & ) Structural Data Admitted From: Home Planned Operative Procedure/s: EGD Consent for Planned Operative Procedure(s) Verified: Yes NPO Status Verified Time NPO: 00:00 Chart Verification Results Verified: HCG Additional verifications Anesthesia Reactions: No Hx Blood Transfusions: Yes Blood Transfusion Reaction: No Airway Assessment Mallampati Score:: Class I C-Spine Mobility Assessed: Yes TMJ Mobility Assessed: Yes Dentition: Good Dentition Neurological Assessment Level of Consciousness: Awake Hx Seizures: No Numbness or tingling in extremities: No Anesthesia Plan Anesthesia Risk discussed: Yes Anesthesia Plan: Verified ASA Class: II Anesthesia Type: MAC
[2023-04-09 07:31] VITALS: O2SAT 96
[2023-04-09 07:42] VITALS: BP 91/55; PULSE 85; RESP 16; TEMP 36.2; O2SAT 97
[2023-04-09 08:02] VITALS: BP 110/74; PULSE 74; RESP 16; O2SAT 100
[2023-04-09 08:12] VITALS: BP 105/74; PULSE 71; RESP 16; TEMP 36.6; O2SAT 98
== END 2023-04-09 08:20 | disposition home or self-care (01) ==
PROVIDERS: PCP Nurse Practitioner Family; Visit Provider Surgery
PROC: 0DJ08ZZ Inspection of Upper Intestinal Tract, Via Natural or Artificial Opening Endoscopic (ICD-10-PCS; CPT 43235; principal; 2023-04-09 07:30)
DX: R13.10 Dysphagia, unspecified (principal); K44.9 Diaphragmatic hernia without obstruction or gangrene; K29.50 Unspecified chronic gastritis without bleeding
CPT/HCPCS: 43239; 81025

== ENCOUNTER → 2023-07-05 12:47 | Outpatient (CLI) | payer OTHER, BC, SELFPAY | LOC: SL 12:48 | PROVIDERS: PCP Nurse Practitioner Family; Visit Provider Nurse Practitioner Family | DX: R06.83 Snoring (principal) | CPT/HCPCS: 95806 ==

== ENCOUNTER 2023-07-24 10:51 | Outpatient (CLI) | payer OTHER, BC, SELFPAY ==
[2023-07-24 11:15] LABS: Basophils % 0.4 % (0.1-2.0); Eosinophils # 0.1 K/mm3 (0.0-0.4); Eosinophils % 1.4 % (0.1-12.0); Hematocrit 39.7 % (37.0-47.0); Hemoglobin 12.6 g/dL (12.2-16.2); Lymphocytes # 1.7 K/mm3 (0.7-4.5); Mean Corpuscular HGB Conc 31.7 g/dL (31.8-35.4); Mean Corpuscular Hemoglobin 28.1 pg (27.0-31.2); Mean Corpuscular Volume 88.6 fl (81-99); Mean Platelet Volume 8.5 fl (7.4-10.4); Monocytes # 0.4 K/mm3 (0.1-1.0); Monocytes % 6.7 % (1.7-9.3); Neutrophils # 3.2 K/mm3 (1.8-7.8); Neutrophils % 59.4 % (37.0-80.0); Platelet Count 289 K/mm3 (142-424); Red Blood Count 4.48 M/mm3 (4.20-5.40); Red Cell Distribution Width 12.9 % (11.5-17.5); White Blood Count 5.4 K/mm3 (4.8-10.8)
[2023-07-24 11:40] LABS: Iron 59 ug/dL (37-170)
[2023-07-24 11:50] LABS: Total Iron Binding Capacity 281 ug/dL (265-497)
== END 2023-07-24 23:59 ==
LOC: LAB 10:52
PROVIDERS: PCP Nurse Practitioner Family; Visit Provider Nurse Practitioner Family
DX: Z86.2 Personal history of diseases of the blood and blood-forming organs and certain disorders involving the immune mechanism (principal)
CPT/HCPCS: 36415; 83540; 83550; 85025

== ENCOUNTER 2023-09-11 14:23 | Outpatient (CLI) | payer OTHER, BC, SELFPAY ==
[2023-09-11 14:18] LABS: Microscopic, Urine URINE MICROSCOPIC (MICROSCOPIC)
[2023-09-11 14:33] LABS: Basophils % 0.5 % (0.1-2.0); Eosinophils # 0.1 K/mm3 (0.0-0.4); Hematocrit 38.7 % (37.0-47.0); Hemoglobin 12.9 g/dL (12.2-16.2); Lymphocytes # 1.4 K/mm3 (0.7-4.5); Lymphocytes % 26.1 % (10-50); Mean Corpuscular HGB Conc 33.3 g/dL (31.8-35.4); Mean Corpuscular Hemoglobin 28.8 pg (27.0-31.2); Mean Corpuscular Volume 86.5 fl (81-99); Mean Platelet Volume 8.4 fl (7.4-10.4); Monocytes # 0.3 K/mm3 (0.1-1.0); Monocytes % 5.5 % (1.7-9.3); Neutrophils # 3.5 K/mm3 (1.8-7.8); Platelet Count 299 K/mm3 (142-424); Red Blood Count 4.48 M/mm3 (4.20-5.40); White Blood Count 5.3 K/mm3 (4.8-10.8)
[2023-09-11 14:37] LABS: Appearance,Urine CLEAR (Clear); Bilirubin,Urine Negative (Negative); Blood, Urine TRACE-I (Negative); Color,Urine YELLOW (Yellow); Glucose,Urine (UA) Negative (Negative); Ketones,Urine Negative (Negative); Leukocyte Esterase,Urine Negative (Negative); Nitrate,Urine Negative (Negative); Protein,Urine Negative (Negative); Specific Gravity, Urine 1.025 (1.005-1.030); Urobilinogen,Urine 0.2 EU/dl (0.2)
[2023-09-11 15:04] LABS: Alanine Aminotransferase 30 U/L (12-78); Albumin Level 4.3 g/dl (3.5-5.0); Albumin/Globulin Ratio 1.8 (1.1-1.8); Alkaline Phosphatase 75 U/L (38-126); Anion Gap 12.5 mEq/L (5-15); Aspartate Amino Transferase 30 U/L (14-36); Bilirubin,Total 0.4 mg/dl (0.2-1.3); Blood Urea Nitrogen 10 mg/dl (7-17); Calcium 9.6 mg/dl (8.4-10.2); Carbon Dioxide 24 mmol/L (22.0-30.0); Chloride 107 mmol/L (98-107); Chol/HDL Ratio 3.8 (1-3.5); Cholesterol 146 mg/dl (140-200); Estimated Glomerular Filt Rate 81 ml/min (>60); GFR (African American) 98 ML/MIN (>60); Globulin 2.4 g/dL (1.3-3.2); Glucose 90 mg/dl (74-100); HDL Cholesterol 38 mg/dl (40-60); Magnesium 2.1 mg/dl (1.6-2.3); Potassium 4.5 mmoL/L (3.5-5.1); Sodium 139 mmol/L (136-145); Total Protein,Serum 6.7 g/dl (6.3-8.2); Triglycerides 209 mg/dl (30-150); VLDL Cholesterol 42 mg/dL (0-40)
[2023-09-11 15:06] LABS: Bacteria,Urine 1+ /lpf
[2023-09-11 15:07] LABS: RBC,Urine Occasional #/hpf (0-3); WBC,Urine Occasional #/hpf (0-3)
[2023-09-11 15:16] LABS: C-Reactive Protein 3.4 mg/L (0-4); Direct LDL Cholesterol 61.52 mg/dL (100-129)
[2023-09-11 15:25] LABS: 25-OH Vitamin D, Total 56.8 ng/mL (30-100)
[2023-09-11 15:36] LABS: Thyroid Stimulating Hormone 1.32 uIU/mL (0.465-4.68)
[2023-09-11 15:55] LABS: Vitamin B12 607 pg/mL (239-931)
[2023-09-11 16:33] LABS: Free T4 (Free Thyroxine) 1.14 ng/dl (0.78-2.19)
[2023-09-11 17:31] LABS: Iron 81 ug/dL (37-170); Total Iron Binding Capacity 276 ug/dL (265-497)
[2023-09-11 17:33] LABS: Ferritin 56.8 ng/ml (6.24-137)
[2023-09-11 18:10] LABS: Hemoglobin A1C 5.5 % (4.0-6.0)
[2023-09-14 09:09] LABS: Neisseria gonorrhoeae, NAA Negative (Negative)
== END 2023-09-11 23:59 | disposition home or self-care (01) ==
LOC: LAB.DROPOF 14:24
PROVIDERS: PCP Nurse Practitioner Family; Visit Provider Nurse Practitioner Family
DX: R53.83 Other fatigue (principal); G25.81 Restless legs syndrome; Z13.1 Encounter for screening for diabetes mellitus; E78.5 Hyperlipidemia, unspecified; E83.10 Disorder of iron metabolism, unspecified; Z11.3 Encounter for screening for infections with a predominantly sexual mode of transmission; M79.7 Fibromyalgia; B96.89 Other specified bacterial agents as the cause of diseases classified elsewhere; E66.9 Obesity, unspecified; Z68.32 Body mass index [BMI] 32.0-32.9, adult; E78.1 Pure hyperglyceridemia; Z79.899 Other long term (current) drug therapy
CPT/HCPCS: 80053; 80061; 81001; 82306; 82607; 82728; 83036; 83540; 83550; 83735; 84439; 84443; 85025; 86140; 87086; 87491; 87591

== ENCOUNTER 2023-10-23 15:38 | Outpatient (CLI) | payer OTHER, BC, SELFPAY ==
[2023-10-23 15:32] LABS: Alanine Aminotransferase 21 U/L (12-78); Albumin Level 4.4 g/dl (3.5-5.0); Albumin/Globulin Ratio 1.5 (1.1-1.8); Alkaline Phosphatase 78 U/L (38-126); Anion Gap 15.9 mEq/L (5-15); Aspartate Amino Transferase 23 U/L (14-36); Bilirubin,Total 0.3 mg/dl (0.2-1.3); Blood Urea Nitrogen 15 mg/dl (7-17); Calcium 9.5 mg/dl (8.4-10.2); Carbon Dioxide 25 mmol/L (22.0-30.0); Chloride 103 mmol/L (98-107); Chol/HDL Ratio 2.4 (1-3.5); Cholesterol 138 mg/dl (140-200); Estimated Glomerular Filt Rate 70 ml/min (>60); GFR (African American) 85 ML/MIN (>60); Globulin 2.9 g/dL (1.3-3.2); Glucose 87 mg/dl (74-100); HDL Cholesterol 58 mg/dl (40-60); Potassium 4.9 mmoL/L (3.5-5.1); Sodium 139 mmol/L (136-145); Total Protein,Serum 7.3 g/dl (6.3-8.2); Triglycerides 133 mg/dl (30-150); VLDL Cholesterol 27 mg/dL (0-40)
[2023-10-23 15:44] LABS: C-Reactive Protein 2.5 mg/L (0-4)
[2023-10-24 09:14] LABS: Insulin Level Total 8.9 uIU/mL (2.6-24.9)
== END 2023-10-23 23:59 | disposition home or self-care (01) ==
LOC: LAB.DROPOF 15:38
PROVIDERS: PCP Nurse Practitioner Family; Visit Provider Nurse Practitioner Family
DX: E78.5 Hyperlipidemia, unspecified (principal); M79.7 Fibromyalgia
CPT/HCPCS: 80053; 80061; 82533; 83525; 86140

== ENCOUNTER 2023-11-13 16:01 | Outpatient (CLI) | payer OTHER, BC, SELFPAY ==
[2023-11-13 16:43] LABS: Lactic Acid 0.6 mmol/L (0.7-2.1)
[2023-11-13 17:16] LABS: Creatine Kinase 55 U/L (30-135)
[2023-11-13 17:31] LABS: C-Reactive Protein 2.2 mg/L (0-4); Direct LDL Cholesterol 131.19 mg/dL (100-129)
[2023-11-13 18:06] LABS: Vitamin B12 816 pg/mL (239-931)
[2023-11-16 02:11] LABS: Zinc 72 ug/dL (44-115)
[2023-11-16 20:09] LABS: Magnesium,RBC 5.4 mg/dL (3.7-7.0)
[2023-11-17 18:09] LABS: Vitamin B1 131.8 nmol/L (66.5-200.0)
[2023-11-17 21:11] LABS: Vitamin B6 24.4 ug/L (3.4-65.2)
[2023-11-19 12:15] LABS: Selenium 252 ug/L (100-340)
== END 2023-11-13 23:59 | disposition home or self-care (01) ==
LOC: LAB 16:02
PROVIDERS: PCP Nurse Practitioner Family; Visit Provider Nurse Practitioner Family
DX: M79.10 Myalgia, unspecified site (principal); R53.1 Weakness; E78.5 Hyperlipidemia, unspecified; R10.2 Pelvic and perineal pain; R20.8 Other disturbances of skin sensation; R10.9 Unspecified abdominal pain; M54.50 Low back pain, unspecified
CPT/HCPCS: 36415; 82550; 82607; 83605; 83722; 83735; 84207; 84255; 84425; 84630; 86140; 87086

== ENCOUNTER 2023-12-26 08:00 | Outpatient (CLI) | payer OTHER, BC, SELFPAY ==
[2023-12-26 10:23] LABS: Basophils # 0.1 K/mm3 (0-0.2); Basophils % 1.5 % (0.1-2.0); Eosinophils # 0.1 K/mm3 (0.0-0.4); Eosinophils % 1.2 % (0.1-12.0); Hematocrit 43.7 % (37.0-47.0); Hemoglobin 13.9 g/dL (12.2-16.2); Lymphocytes # 1.4 K/mm3 (0.7-4.5); Lymphocytes % 29.4 % (10-50); Mean Corpuscular HGB Conc 31.8 g/dL (31.8-35.4); Mean Corpuscular Hemoglobin 28.1 pg (27.0-31.2); Mean Corpuscular Volume 88.6 fl (81-99); Mean Platelet Volume 8.4 fl (7.4-10.4); Monocytes # 0.3 K/mm3 (0.1-1.0); Neutrophils # 2.8 K/mm3 (1.8-7.8); Neutrophils % 60.9 % (37.0-80.0); Platelet Count 356 K/mm3 (142-424); Red Blood Count 4.93 M/mm3 (4.20-5.40); Red Cell Distribution Width 13.1 % (11.5-17.5); White Blood Count 4.6 K/mm3 (4.8-10.8)
[2023-12-26 11:01] LABS: Alanine Aminotransferase 51 U/L (12-78); Albumin Level 4.3 g/dl (3.5-5.0); Albumin/Globulin Ratio 1.4 (1.1-1.8); Alkaline Phosphatase 75 U/L (38-126); Amylase 61 U/L (30-110); Anion Gap 11.4 mEq/L (5-15); Aspartate Amino Transferase 46 U/L (14-36); Bilirubin,Total 0.5 mg/dl (0.2-1.3); Blood Urea Nitrogen 12 mg/dl (7-17); Calcium 9.7 mg/dl (8.4-10.2); Carbon Dioxide 24 mmol/L (22.0-30.0); Chloride 106 mmol/L (98-107); Chol/HDL Ratio 5.1 (1-3.5); Cholesterol 275 mg/dl (140-200); Erythrocyte Sedimentation Rate 17 mm/hr (0-20); Estimated Glomerular Filt Rate 94 ml/min (>60); GFR (African American) 113 ML/MIN (>60); Glucose 97 mg/dl (74-100); HDL Cholesterol 54 mg/dl (40-60); Lipase 98 U/L (23-300); Potassium 4.4 mmoL/L (3.5-5.1); Sodium 137 mmol/L (136-145); Total Protein,Serum 7.3 g/dl (6.3-8.2); Triglycerides 227 mg/dl (30-150); VLDL Cholesterol 45 mg/dL (0-40)
[2023-12-26 11:13] LABS: C-Reactive Protein 3.5 mg/L (0-4); Direct LDL Cholesterol 158.52 mg/dL (100-129)
[2023-12-27 15:34] LABS: Cytoplasmic (C-ANCA) <1:20 titer (Neg:<1:20); Deamidated Gliadin Abs, IgA 7 units (0-19); Deamidated Gliadin Abs, IgG 2 units (0-19); Perinuclear (P-ANCA) <1:20 titer (Neg:<1:20); Tissue Transglutaminase IgA Ab <2 U/mL (0-3); Tissue Transglutaminase IgG Ab 3 U/mL (0-5)
[2023-12-27 16:13] LABS: Endomysial IgA Antibody Negative (Negative)
[2023-12-28 12:12] LABS: Reticulin IgA Antibody Negative titer (Neg:<1:2.5)
[2023-12-31 17:10] LABS: Saccharomyces cerevisiae, IgA <20.0 Units (0.0-24.9); Saccharomyces cerevisiae, IgG 25.5 Units (0.0-24.9)
== END 2023-12-26 23:59 | disposition home or self-care (01) ==
LOC: LAB.DROPOF 15:00
PROVIDERS: PCP Nurse Practitioner Family; Visit Provider Nurse Practitioner Family
DX: R10.9 Unspecified abdominal pain (principal)
CPT/HCPCS: 80053; 80061; 82150; 83516; 83690; 85025; 85651; 86140; 86255; 86256; 86671

== ENCOUNTER 2024-01-15 07:49 | Outpatient (CLI) | payer OTHER, BC, SELFPAY ==
--- NOTE | 2024-01-15 07:50 | CT_ITS ---
FINAL REPORT TECHNIQUE: Axial images through the abdomen and pelvis were performed both pre and post intravenous contrast administration. This study was performed with techniques to keep radiation doses as low as reasonably achievable, (ALARA). Individualized dose reduction techniques using automated exposure control or adjustment of mA and/or kV according to the patient's size were employed. CLINICAL HISTORY: diffuse abd pain, diarrhea COMPARISON: None FINDINGS: There is extensive streak artifact in the posterior aspect of the lower chest and upper abdomen secondary to lower thoracic fusion rods. There are calcified granulomas present in the right lung base. The liver is normal in size and attenuation. The gallbladder has been surgically resected. The spleen is unremarkable. The adrenals are normal. The pancreas is unremarkable. The kidneys enhance appropriately. Tubal ligation clips are noted in the pelvis. The bladder is incompletely distended. No evidence of abdominal or pelvic adenopathy or free fluid is seen. Precontrast images demonstrate no nephrolithiasis. IMPRESSION: No acute process Reviewed, Interpreted and Dictated by Drew Pham MD Transcribed by Gillian Godinez Authenticated and [facility]
[2024-01-15] MEDS: SODIUM CHLORIDE 0.9% 10ML SYR (RAD ONLY) 10 ML IV (08:26)
[2024-01-15] MEDS: IOPAMIDOL-370 (76%);100ML BOTTLE 75 ML IV (08:26)
== END 2024-01-15 23:59 | disposition home or self-care (01) ==
LOC: RAD 07:49
PROVIDERS: PCP Nurse Practitioner Family; Visit Provider Nurse Practitioner Family
DX: R10.9 Unspecified abdominal pain (principal)
CPT/HCPCS: 74178; Q9967

== ENCOUNTER 2024-04-01 14:50 | Outpatient (CLI) | payer OTHER, BC, SELFPAY ==
[2024-04-01 13:04] LABS: Alanine Aminotransferase 71 U/L (12-78); Albumin Level 4.1 g/dl (3.5-5.0); Albumin/Globulin Ratio 1.7 (1.1-1.8); Alkaline Phosphatase 70 U/L (38-126); Anion Gap 11.4 mEq/L (5-15); Aspartate Amino Transferase 35 U/L (14-36); Bilirubin,Total 0.5 mg/dl (0.2-1.3); Blood Urea Nitrogen 9 mg/dl (7-17); Calcium 9.1 mg/dl (8.4-10.2); Carbon Dioxide 24 mmol/L (22.0-30.0); Chloride 106 mmol/L (98-107); Chol/HDL Ratio 4.9 (1-3.5); Cholesterol 212 mg/dl (140-200); Estimated Glomerular Filt Rate 94 ml/min (>60); GFR (African American) 113 ML/MIN (>60); Globulin 2.4 g/dL (1.3-3.2); Glucose 82 mg/dl (74-100); HDL Cholesterol 43 mg/dl (40-60); Potassium 4.4 mmoL/L (3.5-5.1); Sodium 137 mmol/L (136-145); Total Protein,Serum 6.5 g/dl (6.3-8.2); Triglycerides 179 mg/dl (30-150); VLDL Cholesterol 36 mg/dL (0-40)
[2024-04-01 13:15] LABS: Direct LDL Cholesterol 135.76 mg/dL (100-129)
== END 2024-04-01 23:59 | disposition home or self-care (01) ==
LOC: LAB.DROPOF 14:51
PROVIDERS: PCP Nurse Practitioner Family; Visit Provider Nurse Practitioner Family
DX: E78.5 Hyperlipidemia, unspecified (principal)
CPT/HCPCS: 80053; 80061

== ENCOUNTER 2024-04-15 14:02 | Outpatient (CLI) | payer OTHER, BC, SELFPAY ==
--- NOTE | 2024-04-15 14:03 | MR_ITS ---
FINAL REPORT CLINICAL HISTORY: Dizziness, Numbness and tingling. no injury or trauma FINDINGS: Multi planar MR imaging was obtained through the brain without contrast. The midline structures appear intact. There is no evidence of Chiari malformation. On T2 and flair axial images the brain parenchyma is homogeneous. On diffusion-weighted images there is no evidence of restricted diffusion. The visualized paranasal sinuses demonstrate normal signal voids. The seventh and eighth nerve root complexes are intact. IMPRESSION: Essentially unremarkable nonenhanced brain MRI. Reviewed, Interpreted and Dictated by Drew Pham MD Transcribed by Adamaris Mi Authenticated and [facility]
== END 2024-04-15 23:59 | disposition home or self-care (01) ==
LOC: RAD 14:03
PROVIDERS: PCP Nurse Practitioner Family; Visit Provider Nurse Practitioner Family
DX: R42 Dizziness and giddiness (principal); R20.0 Anesthesia of skin; R20.2 Paresthesia of skin
CPT/HCPCS: 70551

== ENCOUNTER 2024-04-21 08:04 | Outpatient (CLI) | payer OTHER, BC, SELFPAY ==
[2024-04-21 09:14] LABS: Uric Acid 4.7 mg/dl (2.5-6.2)
[2024-04-21 09:26] LABS: Intact Parathyroid Hormone 61.5 pg/mL (7.5-53.5)
[2024-04-21 09:30] LABS: Free T4 (Free Thyroxine) 1.11 ng/dl (0.78-2.19)
[2024-04-21 09:31] LABS: Erythrocyte Sedimentation Rate 19 mm/hr (0-20)
[2024-04-21 09:32] LABS: 25-OH Vitamin D, Total 44.8 ng/mL (30-100)
[2024-04-21 09:44] LABS: Thyroid Stimulating Hormone 0.52 uIU/mL (0.465-4.68)
[2024-04-22 07:14] LABS: RA Latex Turbid. <10.0 IU/mL (<14.0)
[2024-04-22 10:31] LABS: Thyroid Peroxidase Antibodies 12 IU/mL (0-34)
[2024-04-22 16:19] LABS: Calcium, Ionized 5.1 mg/dL (4.5-5.6); Thyroglobulin Level <1.0 IU/mL (0.0-0.9)
[2024-04-25 14:29] LABS: Antinuclear Antibodies, IFA Negative (.)
== END 2024-04-21 23:59 | disposition home or self-care (01) ==
LOC: LAB 08:05
PROVIDERS: PCP Nurse Practitioner Family; Visit Provider Nurse Practitioner Family
DX: R20.0 Anesthesia of skin (principal); R20.2 Paresthesia of skin; R42 Dizziness and giddiness; M79.7 Fibromyalgia; R53.1 Weakness; E66.09 Other obesity due to excess calories; Z68.30 Body mass index [BMI] 30.0-30.9, adult; R53.83 Other fatigue; G25.81 Restless legs syndrome
CPT/HCPCS: 36415; 82306; 82330; 83970; 84439; 84443; 84550; 85651; 86038; 86376; 86431; 86800

== ENCOUNTER 2024-05-12 08:14 | Outpatient (CLI) | payer OTHER, BC, SELFPAY ==
--- NOTE | 2024-05-12 08:14 | NM_ITS ---
FINAL REPORT CLINICAL HISTORY: hyperparathyroidism 8:20 AM 21.8 MCI Tc Sestumibi injected into lt ant COMPARISON: None FINDINGS: PARATHYROID SPECT: SPECT images of the region of the parathyroid was performed at various intervals after the intravenous administration of 21.8 mCi of technetium sestamibi. Immediate and 2-hour delayed images were obtained. There are no findings to indicate localized uptake in the parathyroid glands. IMPRESSION: No findings to indicate localized uptake in the parathyroid glands. Reviewed, Interpreted and Dictated by Sung Lowe MD Transcribed by Gillian Godinez Authenticated and [facility]
[2024-05-12] MEDS: SODIUM CHLORIDE 0.9% 10ML SYR (RAD ONLY) 10 ML IV (10:00)
[2024-05-12] MEDS: ISO TC99M (SESTAMIBI);1 DOSE VIAL IV (10:00)
== END 2024-05-12 23:59 | disposition home or self-care (01) ==
LOC: RAD 08:14
PROVIDERS: PCP Nurse Practitioner Family; Visit Provider Nurse Practitioner Family
DX: E21.3 Hyperparathyroidism, unspecified (principal); R42 Dizziness and giddiness; R20.0 Anesthesia of skin; R20.2 Paresthesia of skin
CPT/HCPCS: 78071; A9500

== ENCOUNTER 2024-05-17 08:50 | Emergency (ER) | payer OTHER, BC, SELFPAY ==
[2024-05-17 10:00] VITALS: BP 128/78; PULSE 79; RESP 19; TEMP 37.1; O2SAT 98; BMI 29.8
[2024-05-17 10:04] LABS: UTC Strep Screen (Rapid) Negative (Negative)
--- NOTE | 2024-05-17 10:07 | ED_ITS ---
Discharge Plan Disposition Patient Disposition: Home, Self-Care Condition: Good Prescriptions Prescriptions: New azithromycin [Zithromax Z-Quinton] 250 mg tablet See Rx Instructions .ROUTE .COMPLEX 5 Days Qty: 6 0RF Rx Instructions: For 250 mg dose pack: take 500 mg today (day 1), then 250 mg for 4 days (days 2-5) fluticasone propionate [Flonase Allergy Relief] 50 mcg/actuation spray,suspension 1 - 2 spray intranasal DAILY Qty: 16 0RF Rx Instructions: administer into each nostril daily No Action ezetimibe 10 mg tablet 10 mg PO DAILY Patient Comments: TAKE 1 TABLET BY MOUTH ONCE DAILY escitalopram oxalate 10 mg tablet 10 mg PO DAILY Patient Comments: TAKE 1 TABLET BY MOUTH ONCE DAILY tizanidine 4 mg tablet 4 mg PO HS PRN (Reason: muscle spasms) propranolol 10 mg tablet 10 mg PO BID Qty: 60 2RF levocetirizine 5 mg tablet 5 mg PO DAILY Qty: 90 3RF Trulance 3 mg tablet 3 mg PO DAILY Qty: 30 2RF pantoprazole 40 MG tablet,delayed release (DR/EC) 40 mg PO DAILY Rx Instructions: TAKE 1 TABLET BY MOUTH ONCE DAILY FOR GERD Referrals Follow up/Referrals: Suyapa Callahan APRN [Primary Care Provider] - See instructions Activity Restrictions/Add. Instructions Additional Instructions/Restrictions: *Monitor Temp, Over the counter Motrin or Tylenol as directed/as needed Tylenol every 4 hours and Motrin every 6 hours (as long as your family doctor has told you that you can take it) for fever or pain. and straight to ER if unable to lower temp less than 101.0 after medication given *Warm salt water gargles may help to soothe the throat *Throat Lozenges? *Warm fluids like tea with honey may help to soothe the throat? *Sleep elevated *Humidifier/Vaporizer *Your throat swab was sent for culture. Those results are typically sent to your primary care. Be sure to follow up in 2-3 days with your family doctor/primary care physician if no improvement so they can review those result and treat if necessary. If you don?t have a primary care doctor, I recommend you get one but in the mean time, you will have to return to a walk in clinic Follow up IMMEDIATELY for new or worsening symptoms or no Noticeable improvement over the next 48-72 hours. 911 for difficulty breathing or swallowing Clinical Impressions Clinical Impression: Pharyngitis Qualifiers: Pharyngitis/tonsillitis etiology: unspecified etiology Qualified Code(s): J02.9 - Acute pharyngitis, unspecified Instructions Patient Instructions: Sore Throat Print Language Print Language: Mozambican Discharge ED Provider[place]ren Tejeda [facility] [place] [facility] [place] General Stated complaint: sore throat, runny nose Time Seen by Provider: 05/17/24 10:07 History of Present Illness Provider Complaint: Patient states that for over a week she has been having sore throat, runny nose and pain and pressure in her ears States today she wasnt feeling any better so she came in to get checked Related Data Home Medications ?Medication ?Instructions ?Recorded ?Confirmed pantoprazole 40 mg tablet,delayed 40 mg PO DAILY GERD 06/27/19 04/01/24 release escitalopram oxalate 10 mg tablet 10 mg PO DAILY mood 12/26/22 04/01/24 tizanidine 4 mg tablet 4 mg PO HS PRN muscle spasms 09/10/23 04/01/24 ezetimibe 10 mg tablet 10 mg PO DAILY 02/17/24 04/01/24 Previous Rx's ?Medication ?Instructions ?Recorded propranolol 10 mg tablet 10 mg PO BID #60 tabs 11/27/23 levocetirizine 5 mg tablet 5 mg PO DAILY . #90 tabs 03/12/24 plecanatide 3 mg tablet (Trulance) 3 mg PO DAILY #30 tabs 04/06/24 azithromycin 250 mg tablet See Rx Instructions PO .COMPLEX 5 05/17/24 (Zithromax Z-Quinton) days #6 tabs fluticasone propionate 50 1 - 2 spray intranasal DAILY #16 05/17/24 mcg/actuation nasal grams spray,suspension (Flonase Allergy Relief) Allergies Allergy/AdvReac Type Severity Reaction Status Date / Time penicillin G Allergy Unknown Verified 04/01/24 08:26 Penicillins Allergy Unknown Verified 04/01/24 08:26 cefaclor (From [facility]) Allergy Unknown Verified 04/01/24 08:26 allergy reaction [facility] Disclaimer: The information contained in this section may have been updated after the patient was seen, as this information can be updated by other users. 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 Thoracic scoliosis Dyspnea Sinusitis Bronchitis, acute UTI (urinary tract infection) URI (upper respiratory infection) Atelectasis Pneumonia Constipation in female Bloating Foreign body sensation in throat Asthma GERD (gastroesophageal reflux disease) Anxiety HLD (hyperlipidemia) Generalized anxiety disorder Major depressive disorder Surgical History H/O abdominoplasty History of thoracic spinal fusion History of History of endometrial ablation Family History Other Family history of cardiac disorder Family history of diabetes mellitus Family history of hyperlipidemia Family history of hypertension Social History Smoking Status: Never smoker how long ago did patient quit smoking: quit cigarettes about 10-12 years ago; just picked up vaping quit status: has quit before second hand exposure: No alcohol intake: never counseling given: Yes counseling provided: provider counseling substance use type: denies use and marijuana counseling given: No (has not smoked pot since she was 19 years old) counseling provided: none current occupational status: employed Travel in the last 8 weeks: None adopted: No caregiver/support person: No foster care: No household members: spouse housing: house lives independently: Yes marital status: number of children: 2 number of grandchildren: 0 education level: college service: No prison: No current occupation: [employer] current occupational exposures/hazards: No pets and animals: Yes pets and animals: dog(s) Hx Recent Travel: No sexually active: Yes caffeine: Yes physical activity: none working smoke detector in home: Yes fire extinguisher in home: No carbon monox detector in home: Yes firearms in home: Yes firearms unloaded and locked: Yes do you feel safe at home: Yes victim of physical abuse: No victim of emotional abuse: No victim of sexual abuse: No would you like helpful sources: No Have you lived/traveled outside [place] in past 30 days?: No Contact w/someone who lives/traveled outside US past 30 days?: No Exposure to someone with infectious disease in past 14 days?: No Do you have a fever (greater than 100.4 F or 38 C)?: No Have you tested positive for COVID-19: No Exposed to someone with COVID-19 in past 14 days?: No Do you have a sore throat?: Yes Do you have a cough?: Yes Do you have any weakness?: No Do you have any diarrhea?: No Are you experiencing any unusual bleeding?: No Do you have any muscle aches/pain?: No Do you have any abdominal pain?: No Are you experiencing loss of taste or smell?: No ROS Obtained: Yes All systems reviewed & no additional complaints except as documented and Yes Systems reviewed as appropriate & no additional complaints except as documented Constitutional Constitutional: Reports system reviewed and no additional complaints, except as documented, Reports as per HPI and Reports headache(s) ENT Ears, Nose, Mouth, and Throat: Reports system reviewed and no additional complaints, except as documented, Reports as per HPI, Reports otalgia, Reports headache(s) and Reports sore throat Cardiovascular Cardiovascular: Reports system reviewed and no additional complaints, except as documented and Reports as per HPI Respiratory Respiratory: Reports system reviewed and no additional complaints, except as documented and Reports as per HPI Gastrointestinal Gastrointestingal: Reports system reviewed and no additional complaints, except as documented and as per HPI Neurologic Neurologic: Reports headache(s) Physical Exam General General appearance: alert and in no apparent distress ENT ENT exam: Present mucous membranes moist Expanded ENT Exam TM/Canal exam: Bilateral TM: bulging Nose exam: Absent sinus tenderness Throat exam: Present tonsillar erythema; Absent tonsillomegaly Respiratory Respiratory exam: Present normal lung sounds bilaterally; Absent respiratory distress or wheezes Cardiovascular Cardiovascular exam: Present regular rate, normal rhythm and normal heart sounds Abdominal Exam Abdominal exam: Present soft and normal bowel sounds; Absent distention or tenderness Neurological Exam Neurological exam: Present alert, oriented X3 and normal gait Medical Decision Making Medical Records Screening: Per USPSTF and CDC recommendations, given the prevalence of disease in our region, it is our hospital?s policy to screen for HIV and viral Hepatitis for all patients aged 18 and over and those with ongoing risk factors. Chalo Inquiry Pt receiving controlled substance: No Chalo was queried for this patient: No Lab Data Lab results reviewed: Yes I reviewed the patient's lab results. Lab Results 05/17/24 09:51: Strep Scn Rapid Clinic Negative Orders (Tests/Meds): ORDERS Category Date Time Status Strep Screen Confirmation Stat Micro 05/17/24 09:51 Received
[2024-05-17 10:15] VITALS: BP 128/78; PULSE 79; RESP 19; TEMP 37.1; O2SAT 98
== END 2024-05-17 10:18 | disposition home or self-care (01) ==
PROVIDERS: Emergency Provider Nurse Practitioner; PCP Nurse Practitioner Family
DX: J02.9 Acute pharyngitis, unspecified (principal)
CPT/HCPCS: 87880; 99213; G0381

== ENCOUNTER 2024-07-20 06:31 | Day surgery (SDC) | payer OTHER, BC, SELFPAY ==
[2024-07-16 14:49] VITALS: BMI 30.5
[2024-07-20] VITALS (7 sets, daily range): BP systolic 88–122; BP diastolic 52–74; PULSE 62–75; RESP 18; TEMP 36.4–36.7; O2SAT 95–99
[2024-07-20] MEDS: LACTATED RINGERS 1000ML 1,000 ML 50 ML IV (07:08)
--- NOTE | 2024-07-20 07:20 | EXP.HP ---
History of Present Illness *Admission Date: 07/20/24 *Reason for visit:: Bloating/generalized abdominal pain and elevated ASCA antibody *History of present illness: Mrs. Mccabe is a 38-year-old female who is here for diagnostic colonoscopy. The patient's chief complaint now is bloating which results in difficulty getting a deep breath. She reports no gassiness or belching. She does have intermittent nausea nearly daily. She has constant early satiety. She is on a pre and probiotic. The patient may go 4 to 5 days without a bowel movement. She is not on the fiber bowel regimen (combined MiraLAX plus Metamucil). This fiber regimen caused more bloating and abdominal discomfort. She does get some generalized abdominal discomfort. She reports no rectal bleeding but does have incomplete defecation and occasional mucus. The patient recently had an elevated ASCA level. Labs from December 2023 showed normal hemoglobin 13.9 and hematocrit 43.7. She has normal alkaline phosphatase 75 and ALT 51. Her H. pylori stool antigen was negative. She has negative celiac serologies. She has never had a colonoscopy. [facility] Disclaimer: The information contained in this section may have been updated after the patient was seen, as this information can be updated by other users. 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 Thoracic scoliosis Dyspnea Sinusitis Bronchitis, acute UTI (urinary tract infection) URI (upper respiratory infection) Atelectasis Pneumonia Constipation in female Bloating Foreign body sensation in throat Asthma GERD (gastroesophageal reflux disease) Anxiety HLD (hyperlipidemia) Generalized anxiety disorder Major depressive disorder Surgical History H/O abdominoplasty History of thoracic spinal fusion History of History of endometrial ablation Family History Other Family history of cardiac disorder Family history of diabetes mellitus Family history of hyperlipidemia Family history of hypertension Social History (Updated 07/20/24 @ 06:53 by Charla Moreno RN) Smoking Status: Never smoker how long ago did patient quit smoking: quit cigarettes about 10-12 years ago; just picked up vaping quit status: has quit before second hand exposure: No alcohol intake: never counseling given: Yes counseling provided: provider counseling substance use type: denies use and marijuana counseling given: No (has not smoked pot since she was 19 years old) counseling provided: none current occupational status: employed Travel in the last 8 weeks: None adopted: No caregiver/support person: No foster care: No household members: spouse housing: house lives independently: Yes marital status: number of children: 2 number of grandchildren: 0 education level: college service: No assisted: No current occupation: [employer] current occupational exposures/hazards: No pets and animals: Yes pets and animals: dog(s) Hx Recent Travel: No sexually active: Yes caffeine: Yes physical activity: none working smoke detector in home: Yes fire extinguisher in home: No carbon monox detector in home: Yes firearms in home: Yes firearms unloaded and locked: Yes do you feel safe at home: Yes victim of physical abuse: No victim of emotional abuse: No victim of sexual abuse: No would you like helpful sources: No Have you lived/traveled outside US in past 30 days?: No Contact w/someone who lives/traveled outside US past 30 days?: No Exposure to someone with infectious disease in past 14 days?: No Do you have a fever (greater than 100.4 F or 38 C)?: No Have you tested positive for COVID-19: No Exposed to someone with COVID-19 in past 14 days?: No Do you have a sore throat?: No Do you have a cough?: No Do you have any weakness?: No Are you experiencing any nausea/vomitting?: No Do you have any diarrhea?: No Are you experiencing any unusual bleeding?: No Do you have any muscle aches/pain?: No Do you have any abdominal pain?: No Are you experiencing loss of taste or smell?: No Other Medical History Have you received the Flu Vaccine for this season: No Have you received the Pneumonia Vaccine: No Review of Systems Review of Systems Review of systems (narrative): Negative *Cardiovascular Comments: Negative *Gastrointestinal Comments: Negative *Genitourinary Comments: Negative *Musculoskeletal Comments: Negative *Neurologic Comments: Negative Meds Home Medications and Allergies Home Medications ?Medication ?Instructions ?Recorded ?Confirmed ?Type pantoprazole 40 mg tablet,delayed 40 mg PO DAILY GERD 06/27/19 07/20/24 History release escitalopram oxalate 10 mg tablet 10 mg PO DAILY mood 12/26/22 07/20/24 History ezetimibe 10 mg tablet 10 mg PO DAILY 02/17/24 07/20/24 History fluticasone propionate 50 1 - 2 spray intranasal DAILY #16 05/17/24 07/20/24 Rx mcg/actuation nasal grams spray,suspension (Flonase Allergy Relief) lorazepam 0.5 mg tablet (Ativan) 0.5 mg PO DAILY PRN Anxiety 06/25/24 07/20/24 History methocarbamol 750 mg tablet 750 mg PO HS #30 tabs 06/25/24 07/20/24 Rx propranolol 10 mg tablet 10 mg PO TID 06/25/24 07/20/24 History levocetirizine 5 mg tablet (24HR 5 mg PO DAILY . 07/20/24 07/20/24 History Allergy Relief) New Prescriptions to Start Prescriptions: Allergies Allergy/AdvReac Type Severity Reaction Status Date / Time cefaclor ([facility]) Allergy Hives Verified 07/20/24 07:13 Penicillins Allergy Hives Verified 07/20/24 07:00 Exam Data for Last 24 hours Vital signs and Labs for Last 24 Hours: Temp Pulse Resp BP Pulse Ox O2 Del Method 98.1 F 75 18 122/74 95 Room Air 07/20/24 07:09 07/20/24 07:09 07/20/24 07:09 07/20/24 07:09 07/20/24 07:09 07/20/24 07:09 *Routine HEENT Exam Head: Present normocephalic Eye: Present EOMI and PERRL ENT: Present mucous membranes moist *Routine Neck Exam Neck: Present supple *Routine Respiratory Exam Respiratory: Present CTA bilaterally *Routine Cardiovascular Exam Cardiovascular: Present RRR *Routine Abdominal Exam Abdominal: Present soft and normoactive bowel sounds; Absent tenderness *Routine Rectal Exam Rectal:: deferred *Routine Genitalia Exam Genitalia:: deferred *Routine Extremities Exam Extremities: Absent cyanosis, clubbing or edema *Routine Skin Exam Skin: Present warm; Absent rash *Routine Neurological Exam Neurological: Present alert and oriented X3 Assessment and Plan *Assessment and plan (1) Generalized abdominal discomfort: Status: Acute Category: Medical Code(s): R10.84 - Generalized abdominal pain (2) Bloating: Status: Acute Category: Medical Code(s): R14.0 - Abdominal distension (gaseous) (3) Chronic idiopathic constipation: Status: Acute Category: Medical Code(s): K59.04 - Chronic idiopathic constipation (4) Elevated Saccharomyces cerevisiae antibody level: Status: Acute Category: Medical Code(s): R76.8 - Other specified abnormal immunological findings in serum (5) Nausea: Status: Acute Category: Medical Code(s): R11.0 - Nausea Plan A/P: 1. Generalized abdominal discomfort, bloating, constipation, nausea and elevated ASCA IgG antibody is the preprocedural diagnosis. The patient will be anesthetized/sedated using MAC sedation. The patient has been seen and examined. Cardiac and lung assessment prior to the examination is stable. Proceed with planned diagnostic colonoscopy
[2024-07-20 07:22] LABS: Urine Pregnancy, HCG Qual. Negative (Negative)
--- NOTE | 2024-07-20 07:26 | P.PCN_ITS ---
[facility] Procedure Note Date: 07/20/24 Time: 07:48 Procedure Note:: Colonoscopy Procedure Report: Colonoscopy Endoscopist: Ayaz King II, MD Referring physician: OSCAR Mccarthy Date of Procedure: July 20, 2024 Equipment: Olympus 190 variable stiffness pediatric colonoscope Sedation: MAC sedation Indication: Mrs. Mccabe is a 38-year-old female who is here for diagnostic colonoscopy. The patient's chief complaint more recently has been bloating which results in difficulty getting a deep breath. She reports no gassiness or belching. She had been having intermittent nausea nearly daily. She had constant early satiety. She had been on a pre and probiotic. The patient may go 4 to 5 days without a bowel movement. The fiber bowel regimen (combined MiraLAX plus Metamucil) had caused more bloating and abdominal discomfort. She does get some generalized abdominal discomfort. She reports no rectal bleeding but does have incomplete defecation and occasional mucus. The patient recently had an elevated ASCA level. Labs from December 2023 showed normal hemoglobin 13.9 and hematocrit 43.7. She has normal alkaline phosphatase 75 and ALT 51. Her H. pylori stool antigen was negative. She has negative celiac serologies. The patient did try Linzess which caused cramps. She was unable to get Motegrity or Trulance. She has done better using fiber capsules. She has never had a colonoscopy. Procedure: Prior to the procedure, a history and physical exam was performed, and patient's medications and allergies were reviewed. The risks, benefits and alternatives of the sedation and procedure were discussed with the patient. All questions were answered and informed consent was obtained. The patient was brought to the procedure room. Patient identification and proposed procedure were verified by the physician and the nurse. The patient was placed in a left lateral decubitus position and the scope was passed under direct vision. Throughout the procedure, the patient's blood pressure, pulse, and oxygen saturations were monitored continuously. The colonoscopy was accomplished without difficulty. The patient tolerated the procedure well. Findings: On digital rectal examination there was normal rectal tone. There were no external hemorrhoids. The colonoscope was introduced through the anal canal to the rectum and advanced to the cecum. The ileocecal valve and appendiceal orifice were identified. The scope was advanced a short distance into the ileum which appeared grossly normal. The scope was then withdrawn into the colon. The cecum, ascending, transverse, descending, sigmoid and rectum were grossly normal. There were no mucosal abnormalities identified. Upon retroflexion within the rectum there were grade 1 internal hemorrhoids. The preparation was excellent throughout with Capitan Preparation Score of 9. The cecal time was 10 minutes. Impression: 1. Normal colonoscopy with intubation of the terminal ileum Plan: There is a fairly high false positive rate of inflammatory bowel disease serologic markers (i.e ASCA IgG and IgA and pANCA) for Crohn's disease and ulcerative colitis. These autoantibody markers of IBD are frequently present in patients without Crohn's disease or ulcerative colitis, including patients with IBS and asymptomatic controls. A colonoscopy test is the most valid way to confirm or rule out IBD and her colonoscopy showed clearly no evidence of IBD or Crohn's disease. I will prescribe Trulance and see if this gets approved. She could not tolerate Linzess because of cramping.
== END 2024-07-20 08:23 | disposition home or self-care (01) ==
PROVIDERS: PCP Nurse Practitioner Family; Visit Provider Internal Medicine Gastroenterology
PROC: 0DJD8ZZ Inspection of Lower Intestinal Tract, Via Natural or Artificial Opening Endoscopic (ICD-10-PCS; CPT 45378; principal; 2024-07-20 07:30)
DX: R10.84 Generalized abdominal pain (principal); R14.0 Abdominal distension (gaseous); K59.04 Chronic idiopathic constipation; R76.8 Other specified abnormal immunological findings in serum; R11.0 Nausea; K58.1 Irritable bowel syndrome with constipation; K64.0 First degree hemorrhoids
CPT/HCPCS: 45378; 81025; J7120

== ENCOUNTER 2024-11-05 15:53 | Outpatient (CLI) | payer OTHER, BC, SELFPAY ==
--- OUTSIDE RECORDS SUMMARY | 2024-10-09 08:00 | XMS_ITS | Encounter Summary ---
Author Organization [facility] Address [address] [place] [address] Phone [email or web address] Care Team Providers Care Program Proposals Coordinator Name Role Phone Joni Vallecillo MD Primary Care Provider [phone] Encounter Details Date Type Department Care Team (Latest Contact Info) Description 10/09/2024 8:00 AM EDT Office Visit [facility] [address] [facility] [address] [place] [address] Dayanara Bass DO [address] [facility] [address] [place] [address] Hyperlipidemia, unspecified hyperlipidemia type (Primary [...] trigger documented in this encounter Care Teams Program Proposals Coordinator Relationship Specialty Start Date End Date Joni Vallecillo MD [address] [facility] [address] [place] [address] PCP - General Internal Medicine 03/26/23 documented as of this encounter
[2024-11-05 14:09] LABS: Coronavirus 19, PCR Not Detected (NotDetected); Human Rhinovirus Not Detected (NotDetected); Influenza A, PCR Not Detected (NotDetected); Influenza B, PCR Not Detected (NotDetected); Respiratory Syncytial Virus Not Detected (NotDetected)
--- OUTSIDE RECORDS SUMMARY | 2024-11-05 15:55 | XMS_ITS | Encounter Summary ---
Author Organization [facility] Address [address] [place] [address] Care Team Providers Care 911 Dispatcher Name Role Phone Bartolome Shelton MD Primary Care Provider [phone] Encounter Details Date Type Department Care Team (Late st Contact Info) Description 09/10/2017 Orders Only External Location [address] [place] [address] Dale Cheng MD [facility] [address] [place], [place] [id number] Social History Tobacco Use Types Packs/Day Years Used Date Smoking Tobacco: Never Assessed Comments Unknown Sex and Gender Information Value Date Recorded Sex Assigned at Not on file Legal Sex Female 8:13 PM EDT Gender Identity Not on file Sexual Orientation Not on file documented as of this encounter Plan of Treatment Not on file documented as of this encounter Procedures Procedure Name Priority Date/Time Associated Diagnosis Comments CT ANGIO CHEST 09/10/2017 6:34 PM EDT documented in this encounter Results * CT Angio Chest (09/10/2017 6:34 PM EDT) Anatomical Region Laterality Modality Chest Computed Tomogra phy 09/10/2017 6:34 PM EDT Dale Cheng MD IMG CT PROCEDURES Final Resu lt documented in this encounter Visit Diagnoses Not on filedocumented in this encounter Care Teams 911 Dispatcher Relationship Specialty Start Date End Date Bartolome Shelton MD [address] [facility] [address] [place], [place] [id number] PCP - General 10/07/20 documented as of this encounter
--- OUTSIDE RECORDS SUMMARY | 2024-11-05 15:55 | XMS_ITS | Clinical Summary ---
Author Organization [facility] Address [address] [place] [address] Phone [email or web address] Care Team Providers Care Echo Tech Name Role Phone Joni Vallecillo MD Primary Care Provider [phone] Allergies Active Allergy Reactions Criticality Noted Date Comments Cefaclor Rash Low 08/19/2017 MOM TOLD ME I WAS ALLERGIC TO Penicillins Rash Low 08/19/2017 MOM TOLD ME I WAS ALLERGIC Medications LORazepam (ATIVAN) 0.5 MG tablet Take 0.5 mg by mouth 2 (two) times a day if needed for anxiety. 023 Active tiZANidine (ZANAFLEX) 4 MG tablet Take 4 mg by mouth every 8 (eight) hours if needed. 023 Active levocetirizine (XYZAL) 5 MG tablet Take 5 mg by mouth 1 (one) time each day in the evening. 023 Active Vraylar 1.5 MG capsule 024 Active FeroSul 325 (65 Fe) MG tablet Take 0.5 tablets by mouth 1 (one) time each day. 024 Active desvenlafaxine (PRISTIQ) 50 MG 24 hr tablet Take 50 mg by mouth 1 (one) time each day. 025 Active ezetimibe (ZETIA) 10 MG tabletIndications :Hyperlipidemia, unspecified hyperlipidemia type Take 1 tablet (10 mg total) by mouth 1 (one) time each day. 90 tablet 025 Active pantoprazole (PROTONIX) 40 MG EC tabletIndications :Chronic gastritis without bleeding, unspecified gastritis type Take 1 tablet (40 mg total) by mouth 1 (one) time each day before breakfast. Do not crush, chew, or split. 90 tablet 025 2025 Active propranolol (INDERAL) 10 MG tabletIndications :Anxiety Take 1 tablet (10 mg total) by mouth in the morning and 1 tablet (10 mg total) in the evening and 1 tablet (10 mg total) before bedtime. 270 tablet Active fluticasone (FLONASE) 50 MCG/ACT nasal sprayIndications: Allergic rhinitis, unspecified seasonality, unspecified trigger Administer 2 sprays into each nostril 1 (one) time each day. 48 g Active ezetimibe (ZETIA) 10 MG tablet Take 10 mg by mouth 1 (one) time each day. 2024 Discontinued(R eorder) cetirizine (ZyrTEC) 10 MG tabletIndications :Allergic rhinitis, unspecified seasonality, unspecified trigger Take 1 tablet (10 mg total) by mouth 1 (one) time each day. 90 tablet 025 2024 Discontinued escitalopram (LEXAPRO) 10 MG tabletIndications :Anxiety Take 1 tablet (10 mg total) by mouth 1 (one) time each day. 90 tablet 025 2024 Discontinued fluticasone (FLONASE) 50 MCG/ACT nasal sprayIndications: Allergic rhinitis, unspecified seasonality, unspecified trigger Administer 2 sprays into each nostril 1 (one) time each day. 48 g 025 2024 Discontinued(R eorder) pantoprazole (PROTONIX) 40 MG EC tabletIndications :Chronic gastritis without bleeding, unspecified gastritis type Take 1 tablet (40 mg total) by mouth 1 (one) time each day before breakfast. Do not crush, chew, or split. 90 tablet 025 2024 Discontinued(R eorder) propranolol (INDERAL) 10 MG tabletIndications :Anxiety Take 1 tablet (10 mg total) by mouth in the morning and 1 tablet (10 mg total) in the evening and 1 tablet (10 mg total) before bedtime. 270 tablet 025 2024 Discontinued(R eorder) Active Problems Problem Noted Date Diagnosed Date Chronic idiopathic constipation 07/08/2024 Fibromyalgia 07/08/2024 Overview (07/08/2024): Diagnosed in 04/2023 by rheumatology Hepatitis C antibody test negative 07/08/2024 Overview (07/08/2024): 05/07/23 at Elevated Saccharomyces cerevisiae antibody level 07/08/2024 Hyperparathyroidism 05/21/2024 Chronic gastritis 09/18/2023 Assessment & Plan (10/09/2024 8:31 AM EDT): Orders: pantoprazole (PROTONIX) 40 MG EC tablet; Take 1 tablet (40 mg total) by mouth 1 (one) time each day before breakfast. Do not crush, chew, or split. Assessment & Plan (07/08/2024 10:06 AM EST): Orders: pantoprazole (PROTONIX) 40 MG EC tablet; Take 1 tablet (40 mg total) by mouth 1 (one) time each day before breakfast. Do not crush, chew, or split. Assessment & Plan (04/02/2024 5:42 PM EST): Orders: pantoprazole (PROTONIX) 40 MG EC tablet; Take 1 tablet (40 mg total) by mouth 1 (one) time each day before breakfast. Do not crush, chew, or split. 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 Major depressive disorder 09/18/2023 Obesity 09/18/2023 Restless leg syndrome 09/18/2023 Postlaminectomy syndrome 09/18/2023 GERD (gastroesophageal reflux disease) 3 Other hyperlipidemia 09/05/2022 Resolved Problems Problem Noted Date Diagnosed Date Resolved Date Constipation in female 09/18/202307/08 Encounters Date Type Department Care Team Description 10/09/2024 8:00 AM EDT Office Visit [facility] [address] [place] [address] Dayanara Bass, Hyperlipidemia, unspecified hyperlipidemia type (Primary Dx); Chronic gastritis without bleeding, unspecified gastritis type; Anxiety; Allergic rhinitis, unspecified seasonality, unspecified trigger from Last 3 Months Immunizations Immunization Administration Dates Next Due Covid-19 (Moderna [place], 12yrs+) (CVX-207) 2020,06/08/2020 DTaP-Hep B-IPV (PEDIARIX)(CVX-110) 12/11/2006 Hib (HIBTITER) (HbOC) (CVX-47) 12/11/2006 Pneumococcal (Prevnar7) conjugate PCV7 (CVX-100) 12/11/2006 Social History Tobacco Use Types Packs/Day Years [...] on file Sexual Orientation Not on file Last Filed Vital Signs Vital Sign Reading Time Taken Comments Blood Pressure 114/78 09/18/2023 12:04 PM EDT Pulse 88 09/18/2023 12:04 PM EDT Temperature 36.9 C (98.4 F) 09/18/2023 12:04 PM EDT Respiratory Rate - - Oxygen Saturation 98% 09/18/2023 12:04 PM EDT Inhaled Oxygen Concentration - - Weight 81.6 kg (180 lb) 09/18/2023 12:04 PM EDT Height 160 cm (5' 3 ) 09/18/2023 12:04 PM EDT Body Mass Index 31.89 09/18/2023 12:04 PM EDT Plan of Treatment Health Maintenance Due Date Last Done Comments Dental Cleaning/Exam 1985 HIV Screening 1985 Hepatitis C Screening 1985 Annual Preventive Exam 10/13/2003 Hep B Infection Screening - Triple Screen 10/13/2003 Hepatitis B Immunization (2 of 3 - 19+ 3-dose series) 01/08/2007 12/11/2006 Polio Immunization (2 of 3 - Adult catch-up series) 01/08/2007 12/11/2006 Tetanus Diphtheria and Pertussis Immunization (2 - Tdap) 12/11/2016 12/11/2006 Covid-19 Immunization (3 - season) 2024 07/06/2020, 06/08/2020 Cervical Cancer Screening 11/13/2024 Po stponed from 2001 (Completed: awaiting records) Influenza Immunization (Season Ended) 2025 Pneumococcal: Ped (0 to 5 Yrs) and At-Risk Member (6 to 64 Yrs) Aged Out 12/11/2006 No longer eligible b ased on patient's age to complete this topic HIB Immunization Aged Out No longer e ligible based on patient's age to complete this topic HPV Immunization Aged Out No longer e ligible based on patient's age to complete this topic Hepatitis A Immunization Aged Out No longer eligible based on patient's age to complete this topic Varicella Immunization Aged Out No lo nger eligible based on patient's age to complete this topic Insurance JASPREET NO COPAY NB Care Teams Echo Tech Relationship Specialty Start Date End Date Joni Vallecillo MD [address] [facility] [address] [place] [address] PCP - General Internal Medicine 03/26/23
--- OUTSIDE RECORDS SUMMARY | 2024-11-05 15:55 | XMS_ITS | Encounter Summary ---
Author Organization [facility] Address [address] [id number] Care Team Providers Care Deposition Operator Name Role Phone Bartolome Shelton MD Primary Care Provider [phone] Reason for Referral * Consultation (Routine) - Closed Specialty Diagnoses / Procedures Referred By Yash phipps Referred To Contact Rheumatology Diagnoses Pain in joint, multiple sites Noni Smith APRN [address] [place] [address] Phone: tel: fax: Referral ID Status Reason Start Date Expiration Date V isits Requested Visits Authorized [id number] Closed Specialty Services Required 04/02/2023 10/01/2024 1 1 Encounter Details Date Type Department Care Team (Late st Contact Info) Description 04/02/2023 Community [facility] [address] [place] [address] Noni Smith APRN [address] [place] [address] Pain in joint, multiple sites (Primary Dx) Social History Tobacco Use Types Packs/Day Years Used Date Smoking Tobacco: Never Alcohol Use Standard Drinks/Week Comments Yes 0 (1 standard drink = 0.6 oz pure alcohol) Alcoholic Drinks/day: Occasional alcohol use Comments Unknown Sex and Gender Information Value Date Recorded Sex Assigned at Not on file Legal Sex Female 8:13 PM EDT Gender Identity Not on file Sexual Orientation Not on file documented as of this encounter Plan of Treatment Scheduled Referrals Name Type Priority Associated Diagnoses Order Schedule Ambulatory referral to Rheumatology Outpatient Referral Routine Pain in joint, multiple sites Expected: 04/02/2023 (Approximate), Expires: 09/30/2024 documented as of this encounter Visit Diagnoses Diagnosis Pain in joint, multiple sites- Primary documented in this encounter Care Teams Deposition Operator Relationship Specialty Start Date End Date Bartolome Shelton MD [address] [place] [id number] PCP - General 10/07/20 documented as of this encounter
--- OUTSIDE RECORDS SUMMARY | 2024-11-05 15:55 | XMS_ITS | Clinical Summary ---
Author Organization [facility] Address [address] [place] [address] Care Team Providers Care Etl Database Developer Name Role Phone Bartolome Shelton MD Primary Care Provider [phone] Allergies Active Allergy Reactions Criticality Noted Date Comments Cefaclor Other - please docum ent in the comment field,Rash,Unknown - Patient states they do not know rxn details Low 08/19/2017 MOM TOLD ME I WAS ALLERGIC TO Penicillins Other - please docum ent in the comment field,Rash,Unknown - Patient states they do not know rxn details Low 08/19/2017 MOM TOLD ME I WAS ALLERGIC Medications escitalopram (Lexapro) 10 MG tablet 1 tablet (10 mg). 02/12/2020 Active famotidine (Pepcid) 20 MG tablet 11/25/2022 Active levocetirizine (Xyzal) 5 MG tablet Take 1 tablet (5 mg) by mouth 1 (one) time each day in the evening. Active LORazepam (Ativan) 0.5 MG tablet 1 tablet (0.5 mg). 06/07/2022 Active omeprazole (PriLOSEC) [address] capsule Take 2 capsules (40 mg) by mouth 1 (one) time each day. Active rosuvastatin (Crestor) 10 MG tablet 2 tablets (20 mg). 12/26/2022 Active propranolol (Inderal) 10 MG tablet 1 tablet (10 mg). 12/26/2022 Active tiZANidine (Zanaflex) 4 MG tablet 1 tablet (4 mg). 07/17/2022 Active Family History Medical History Relation Name Comments Hypertension Father Heart attack Mother Hypertension Mother Hypertension Other 1 Heart attack Other 2 Relation Name Status Comments Father Mother Other 1 Other 2 Social History Tobacco Use Types Packs/Day Years Used Date Smoking Tobacco: Never Smokeless Tobacco: Never Alcohol Use Standard Drinks/Week Comments [...] Sign Reading Time Taken Comments Blood Pressure 106/73 05/07/2023 8:51 AM EST Pulse 76 05/07/2023 8:51 AM EST Temperature 36.9 C (98.4 F) 05/07/2023 8:51 AM EST Respiratory Rate 16 05/07/2023 8:51 AM EST Oxygen Saturation 100% 05/07/2023 8:51 AM EST Inhaled Oxygen Concentration - - Weight 84.7 kg (186 lb 11.7 oz) 05/07/2023 8:51 AM EST Height 162.6 cm (5' 4 ) 05/07/2023 8:51 AM EST Body Mass Index 32.05 05/07/2023 8:51 AM EST Plan of Treatment Health Maintenance Due Date Last Done Comments [facility]-Depression Screening 1985 [facility]-HIV Screening 1985 [facility]-Infant/Child/Adol SDOH Screenings 1985 [facility]-Varicella Vaccines (1 of 2 - 13+ 2-dose series) 1998 HPV Vaccines (1 - 3-dose series) 2000 [facility]- SDOH Screenings 10/13/2003 [facility]-Adult SDOH Screenings 10/13/2003 [facility]-Pap Smear 2006 [facility]-Hepatitis B Vaccines (2 of 3 - 19+ 3-dose series) 01/08/2007 12/11/2006 [facility]-IPV Vaccines (2 of 3 - Adult catch-up series) 01/08/2007 12/11/2006 [facility]-Cervical Cancer Screening 10/13/2015 [facility]-HPV/Cotest 10/13/2015 [facility]-DTaP,Tdap,and Td Vaccine s (2 - Tdap) 12/11/2016 12/11/2006 [id number] Vaccine (3 - 2024-25 season) 2024 07/06/2020, 06/08/2020 [facility]-Influenza Vaccine (Seaso n Ended) 2025 [facility]-Zoster Vaccines (1 of 2) 10/13/2035 [facility]-HIB Vaccines Aged Out 12/11/2006 No longer e ligible based on patient's age to complete this topic [facility]-Pneumococcal Vaccine: Pediatrics (0 to 5 Years) and At-Risk Patients (6 to 49 Years) Aged Out 12/11/2006 No longer eligible b ased on patient's age to complete this topic [facility]-Hepatitis C Screening Completed 05/07/2023 [facility]-Obesity Intervention Completed 05/07/2023 [facility]-Hepatitis A Vaccines Aged Out No longer eligible based on patient's age to complete this topic [facility]-Rotavirus Vaccines Aged Out No lo nger eligible based on patient's age to complete this topic Procedures Procedure Name Priority Date/Time Associated Diagnosis Comments ACUTE HEPATITIS PANEL Routine 05/07/2023 10:42 AM EST Polyarthralgia Sicca syndrome (CMS/HCC) from Last 3 Months or Most Recently Relevant to Health Maintenance Results * Acute Hepatitis Panel (05/07/2023 10:42 AM EST) Hepatitis B Surf Antigen Negative Negative 05/07/2023 1:58 PM EST [facility] Hepatitis C Antibody Negative Negative 05/07/2023 1:58 PM EST [facility] Hepatitis A Antibody IgM Negative Negative 05/07/2023 1:58 PM EST [facility] Hepatitis B Core Antibody IgM Negative Negative 05/07/2023 1:58 PM EST [facility] Blood Venous blood specimen / Unknown Venipuncture / Unknown 05/07/2023 10:42 AM EST 05/07/2023 10:42 AM EST Kecia Martinez [facility] BLOOD ORDERABLES Final Result [facility] [address] [place] [phone] from Last 3 Months or Most Recently Relevant to Health Maintenance Insurance [facility] Care Teams Etl Database Developer Relationship Specialty Start Date End Date Bartolome Shelton MD [address] [place] [id number] PCP - General 10/07/20
== END 2024-11-05 23:59 | disposition home or self-care (01) ==
LOC: LAB.DROPOF 15:53
PROVIDERS: PCP Nurse Practitioner Family; Visit Provider Nurse Practitioner Family
DX: J02.9 Acute pharyngitis, unspecified (principal)
CPT/HCPCS: 87070; 87631

== ENCOUNTER 2024-11-17 08:31 | Outpatient (CLI) | payer OTHER, BC, SELFPAY ==
--- OUTSIDE RECORDS SUMMARY | 2024-10-09 08:00 | XMS_ITS | Encounter Summary ---
Author Organization [facility] Address [address] [place] [address] Phone [email or web address] Care Team Providers Care County Administrator Name Role Phone Joni Vallecillo MD Primary Care Provider [phone] Encounter Details Date Type Department Care Team (Latest Contact Info) Description 10/09/2024 8:00 AM EDT Office Visit [facility] [address] [facility] [address] [place] [address] Dayanara Bass DO [address] [facility] [address] [place] [address] Hyperlipidemia, unspecified hyperlipidemia type (Primary Dx); Chronic gastritis without bleeding, unspecified gastritis type; Anxiety; Allergic rhinitis, unspecified seasonality, unspecified trigger Social History Tobacco Use Types Packs/Day Years Used Date Smoking Tobacco: Unknown Tobacco Cessation:Counseling Given: Not Answered Stress Answer Date Recorded Stress in your Life Not on file 04/02/2024 Dealing with Stress 3 04/02/2024 Comments Unknown Sex and Gender Information Value Date Recorded Sex Assigned at Not on file Legal Sex Female 1:02 PM CDT Gender Identity Not on file Sexual Orientation Not on file documented as of this encounter Progress Notes * Dayanara Bass DO - 10/09/2024 8:00 AM EDT Allergies Chart Review Health Maintenance History Immunizations Screenings Search Synopsis This Visit Vital Signs Assessment & Plan Chronic gastritis without bleeding, unspecified gastritis type Orders: pantoprazole (PROTONIX) 40 MG EC tablet; Take 1 tablet (40 mg total) by mouth 1 (one) time each daybefore breakfast. Do not crush, chew, or split. Anxiety Orders: propranolol (INDERAL) 10 MG tablet; Take 1 tablet (10 mg total) by mouth in the morning and 1 tablet (10 mg total) in the evening and 1 tablet (10 mg total) before bedtime. Allergic rhinitis, unspecified seasonality, unspecified trigger Orders: fluticasone (FLONASE) 50 MCG/ACT nasal spray; Administer 2 sprays into each nostril 1 (one) time each day. Hyperlipidemia, unspecified hyperlipidemia type Orders: ezetimibe (ZETIA) 10 MG tablet; Take 1 tablet (10 mg total) by mouth 1 (one) time each day. Medications refilled. Advised her to schedule in person visit for next follow up. Requested exact date of pap smear so records can be updated accurately. Recheck labs (liver enzymes) at next visit. Amount of time spent with member in minutes: 5 Follow-up: OFFICE VISIT FOLLOW UP Return in approximately 3 Months (around 01/09/2025) . Subjective Lj Mccabe is a 38 y.o. who presents for a telephonic visit Consent for Treatment was received for this member on 07/09/2024. The provider is licensed to practice in the state where the member is located: Yes . Member states they are in a private location: Yes Reason(s) for visit on 10/09/2024: HPI: Patient presents today for medication refill. Medication is working well without significant side effects. No other concerns at this time. One of her other providers switched her from lexapro to Pristiq. She seems to be doing well on it. She reports that she has had a pap smear within the last 6 months. Review of Systems Constitutional: Negative for activity change, appetite change, fever and unexpected weight change. HENT: Negative for congestion and hearing loss. Eyes: Negative for photophobia, pain and visual disturbance. Respiratory: Negative for chest tightness, shortness of breath and wheezing. Cardiovascular: Negative for chest pain, palpitations and leg swelling. Gastrointestinal: Negative for abdominal pain, blood in stool, constipation and diarrhea. Musculoskeletal: Negative for arthralgias, joint swelling and myalgias. Skin: Negative for discoloration and dry skin. Neurological: Negative for tremors, syncope, speech difficulty, weakness and light-headedness. Endo: Negative for cold intolerance, heat intolerance and polyuria. Psychiatric/Behavioral: Negative for agitation, self-injury, sleep disturbance and suicidal ideas. The patient is not nervous/anxious. Allergy/Immuno: Negative for immunocompromised state. Genitourinary: Negative for difficulty urinating and hematuria. The following portions of the patient's chart were reviewed by me during this encounter and updatedas appropriate: Objective All objective data reported by member or based on limited visualization. Visit Vitals Smoking Status Unknown Physical Exam Dayanara Bass DO 10/09/2024 documented in this encounter Miscellaneous Notes * Assessment & Plan Note - Dayanara Bass DO - 10/09/2024 8:00 AM EDT Associated Problem(s): Chronic gastritis Orders: pantoprazole (PROTONIX) 40 MG EC tablet; Take 1 tablet (40 mg total) by mouth 1 (one) time each daybefore breakfast. Do not crush, chew, or split. documented in this encounter Plan of Treatment Not on file documented as of this encounter Visit Diagnoses Diagnosis Hyperlipidemia, unspecified hyperlipidemia type- Primary Chronic gastritis without bleeding, unspecified gastritis type Anxiety Anxiety state, unspecified Allergic rhinitis, unspecified seasonality, unspecified trigger documented in this encounter Care Teams County Administrator Relationship Specialty Start Date End Date Joni Vallecillo MD [address] [facility] [address] [place] [address] PCP - General Internal Medicine 03/26/23 documented as of this encounter
--- OUTSIDE RECORDS SUMMARY | 2024-11-17 08:34 | XMS_ITS | Encounter Summary ---
Author Organization [facility] Address [address] [place] [address] Care Team Providers Care Manager Health Name Role Phone Bartolome Shelton MD Primary Care Provider [phone] Encounter Details Date Type Department Care Team (Late st Contact Info) Description 09/10/2017 Orders Only External Location [address] [place] [address] Dale Cheng MD [facility] [address] [place], [place] [id number] Social History Tobacco Use Types Packs/Day Years [...] on filedocumented in this encounter Care Teams Manager Health Relationship Specialty Start Date End Date Bartolome Shelton MD [address] [facility] [address] [place], [place] [id number] PCP - General 10/07/20 documented as of this encounter
--- OUTSIDE RECORDS SUMMARY | 2024-11-17 08:34 | XMS_ITS | Clinical Summary ---
Author Organization [facility] Address [address] [place] [address] Care Team Providers Care Bit Sander Name Role Phone Bartolome Shelton MD Primary Care Provider [phone] Allergies Active Allergy Reactions Criticality Noted Date [...] Vaccine s (2 - Tdap) 12/11/2016 12/11/2006 [id number] Vaccine (3 - 2024-25 season) 2024 07/06/2020, [...] EST 05/07/2023 10:42 AM EST Kecia Martinez [facility] BLOOD ORDERABLES Final Result [facility] [address] [place] [phone] from Last 3 Months or Most Recently Relevant to Health Maintenance Insurance [facility]TH [facility] Care Teams Bit Sander Relationship Specialty Start Date End Date Bartolome Shelton MD [address] [place] [id number] PCP - General 10/07/20
--- OUTSIDE RECORDS SUMMARY | 2024-11-17 08:34 | XMS_ITS | Encounter Summary ---
Author Organization [facility] Address [address] [id number] Care Team Providers Care Buffer Nickel Name Role Phone Bartolome Shelton MD Primary Care Provider [phone] Reason for Referral * Consultation (Routine) - Closed Specialty Diagnoses / Procedures Referred By Yash phipps Referred To Contact Rheumatology Diagnoses Pain in joint, multiple sites Noni Smith APRN [address] [place] [address] Phone: tel: fax: Referral ID Status Reason Start Date Expiration Date V isits Requested Visits Authorized [id number] Closed Specialty Services Required 04/02/2023 10/01/2024 1 1 Encounter Details Date Type Department Care Team (Late st Contact Info) Description 04/02/2023 Community [facility] Community Practice [address] [place] [address] Noni Smith APRN [address] [place] [address] Pain in joint, multiple sites (Primary Dx) [...] Primary documented in this encounter Care Teams Buffer Nickel Relationship Specialty Start Date End Date Bartolome Shelton MD [address] [place] [address] PCP - General 10/07/20 documented as of this encounter
--- OUTSIDE RECORDS SUMMARY | 2024-11-17 08:34 | XMS_ITS | Clinical Summary ---
Author Organization [facility] Address [address] [place] [address] Phone [email or web address] Care Team Providers Care Food Mixer Assembler Name Role Phone Joni Vallecillo MD Primary Care Provider [phone] Allergies Active Allergy Reactions Criticality Noted Date Comments Cefaclor Rash Low 08/19/2017 MOM TOLD ME I WAS ALLERGIC TO Penicillins Rash Low 08/19/2017 MOM TOLD ME I WAS ALLERGIC Medications LORazepam (ATIVAN) 0.5 MG tablet Take 0.5 mg by mouth 2 (two) times a day if needed for anxiety. 3 Active tiZANidine (ZANAFLEX) 4 MG tablet Take 4 mg by mouth every 8 (eight) hours if needed. 3 Active levocetirizine (XYZAL) 5 MG tablet Take 5 mg by mouth 1 (one) time each day in the evening. 3 Active Vraylar 1.5 MG capsule 4 Active FeroSul 325 (65 Fe) MG tablet Take 0.5 tablets by mouth 1 (one) time each day. 4 Active desvenlafaxine (PRISTIQ) 50 MG 24 hr tablet Take 50 mg by mouth 1 (one) time each day. 5 Active ezetimibe (ZETIA) 10 MG tabletIndications: Hyperlipidemia, unspecified hyperlipidemia type Take 1 tablet (10 mg total) by mouth 1 (one) time each day. 90 tablet 5 Active pantoprazole (PROTONIX) 40 MG EC tabletIndications: Chronic gastritis without bleeding, unspecified gastritis type Take 1 tablet (40 mg total) by mouth 1 (one) time each day before breakfast. Do not crush, chew, or split. 90 tablet 5 026 Active propranolol (INDERAL) 10 MG tabletIndications: Anxiety Take 1 tablet (10 mg total) by mouth in the morning and 1 tablet (10 mg total) in the evening and 1 tablet (10 mg total) before bedtime. 270 tablet 5 Active fluticasone (FLONASE) 50 MCG/ACT nasal sprayIndications:A llergic rhinitis, unspecified seasonality, unspecified trigger Administer 2 sprays into each nostril 1 (one) time each day. 48 g 5 Active Active Problems Problem Noted Date Diagnosed Date Chronic idiopathic constipation 07/08/2024 Fibromyalgia 07/08/2024 Overview (07/08/2024): Diagnosed [facility] 04/2023 by [facility] Hepatitis C antibody test negative 07/08/2024 [...] Postlaminectomy syndrome 09/18/2023 GERD (gastroesophageal reflux disease) Other hyperlipidemia 09/05/2022 Resolved Problems Problem Noted Date Diagnosed Date Resolved Date Constipation in female 09/18/202307/08 Encounters Date Type Department Care Team Description 10/09/2024 8:00 AM EDT Office Visit [facility] [address] [place] [address] Dayanara Bass, Hyperlipidemia, unspecified hyperlipidemia type (Primary Dx); Chronic gastritis without bleeding, unspecified gastritis type; Anxiety; Allergic rhinitis, unspecified seasonality, unspecified trigger from Last 3 Months Immunizations Immunization Administration Dates Next Due Covid-19 (Moderna [place], 12yrs+) (CVX-207) 2020,06/08/2020 DTaP-Hep B-IPV (PEDIARIX)(CVX-110) 12/11/2006 [...] HIV Screening 1985 Hepatitis C Screening 1985 Cervical Cancer Screening 2001 Annual Preventive Exam 10/13/2003 Hep B Infection Screening - Triple Screen 10/13/2003 Hepatitis B Immunization (2 of 3 - 19+ 3-dose series) 01/08/2007 12/11/2006 Polio Immunization (2 of 3 - Adult catch-up series) 01/08/2007 12/11/2006 Tetanus Diphtheria and Pertussis Immunization (2 - Tdap) 12/11/2016 12/11/2006 Covid-19 Immunization (3 - season) 2024 07/06/2020, 06/08/2020 Influenza Immunization (Season Ended) 2025 Pneumococcal: Ped [...] patient's age to complete this topic Insurance ANTH NO COPAY NB Care Teams Food Mixer Assembler Relationship Specialty Start Date End Date Joni Vallecillo MD [address] [place] [address] PCP - General Internal Medicine 03/26/23
[2024-11-17 09:57] LABS: Chol/HDL Ratio 4.8 (1-3.5); Cholesterol 262 mg/dl (140-200); HDL Cholesterol 55 mg/dl (40-60); Triglycerides 199 mg/dl (30-150); VLDL Cholesterol 40 mg/dL (0-40)
== END 2024-11-17 23:59 | disposition home or self-care (01) ==
LOC: LAB 08:32
PROVIDERS: PCP Internal Medicine; Visit Provider Internal Medicine
DX: Z13.220 Encounter for screening for lipoid disorders (principal)
CPT/HCPCS: 36415; 80061

== ENCOUNTER 2025-02-10 09:40 | Outpatient (CLI) | payer OTHER, BC, SELFPAY ==
[2025-02-10 14:25] LABS: Hematocrit 41.4 % (37.0-47.0); Hemoglobin 13.2 g/dL (12.2-16.2); Immature Granulocytes % 0.2 %; Mean Corpuscular HGB Conc 31.9 g/dL (31.8-35.4); Mean Corpuscular Hemoglobin 27.4 pg (27.0-31.2); Mean Corpuscular Volume 86.1 fl (81-99); Nucleated Red Blood Cells % 0 %; Platelet Count 356 K/mm3 (142-424); Red Blood Count 4.81 M/mm3 (4.20-5.40); Red Cell Distribution Width-SD 39.3 fL; White Blood Count 4.3 K/mm3 (4.8-10.8)
[2025-02-10 14:52] LABS: Alanine Aminotransferase 62 U/L (12-78); Albumin Level 4.5 g/dl (3.5-5.0); Albumin/Globulin Ratio 1.5 (1.1-1.8); Alkaline Phosphatase 88 U/L (38-126); Anion Gap 12.9 mEq/L (5-15); Aspartate Amino Transferase 52 U/L (14-36); Bilirubin,Total 0.5 mg/dl (0.2-1.3); Blood Urea Nitrogen 12 mg/dl (7-17); Calcium 9.1 mg/dl (8.4-10.2); Carbon Dioxide 25 mmol/L (22.0-30.0); Chloride 103 mmol/L (98-107); Cholesterol 236 mg/dl (140-200); Creatinine,Serum 0.80 mg/dl (0.52-1.04); Estimated Glomerular Filt Rate 80 ml/min (>60); GFR (African American) 97 ML/MIN (>60); Globulin 3.0 g/dL (1.3-3.2); Glucose 82 mg/dl (74-100); HDL Cholesterol 52 mg/dl (40-60); Potassium 4.9 mmoL/L (3.5-5.1); Sodium 136 mmol/L (136-145); Total Protein,Serum 7.5 g/dl (6.3-8.2); Triglycerides 145 mg/dl (30-150)
[2025-02-10 15:23] LABS: Thyroid Stimulating Hormone 1.31 uIU/mL (0.465-4.68)
--- OUTSIDE RECORDS SUMMARY | 2025-02-11 10:04 | XMS_ITS | Clinical Summary ---
Author Organization [facility] Address [address] [place] [address] Phone [email or web address] Care Team Providers Care Employee Communications Coordinator Name Role Phone Joni Vallecillo MD Primary Care Provider [phone] Allergies Active Allergy Reactions Criticality Noted Date [...] Date Resolved Date Constipation in female 09/18/202307/08 Immunizations Immunization Administration Dates Next Due Covid-19 (Moderna [place], 12yrs+) (CVX-207) 2020,06/08/2020 DTaP-Hep B-IPV (PEDIARIX)(CVX-110) 12/11/2006 [...] Health Maintenance Due Date Last Done Comments Cervical Cancer Screening Combo 1985 Dental Cleaning/Exam 1985 HIV Screening 1985 HPV / Cotest 1985 Hepatitis C Screening 1985 Pap Testing 1985 HPV Immunization (1 - 2-dose series) 1996 Annual Preventive Exam 10/13/2003 Hep B Infection Screening - Triple Screen 10/13/2003 Hepatitis B Immunization (2 of 3 - 19+ 3-dose series) 01/08/2007 12/11/2006 Polio Immunization (2 of 3 - Adult catch-up series) 01/08/2007 12/11/2006 Tetanus Diphtheria and Pertussis Immunization (2 - Tdap) 12/11/2016 12/11/2006 Covid-19 Immunization (3 - season) 2025 07/06/2020, 06/08/2020 Influenza Immunization (#1) 2025 Pneumococcal: Ped (0 to 5 Yrs) [...] patient's age to complete this topic Insurance ANTHKENNETH NO COPAY NB Care Teams Employee Communications Coordinator Relationship Specialty Start Date End Date Joni Vallecillo MD [address] [facility] [address] [place] [address] PCP - General Internal Medicine 03/26/23
--- OUTSIDE RECORDS SUMMARY | 2025-02-11 10:04 | XMS_ITS | Encounter Summary ---
Author Organization [facility] Address [address] [id number] Care Team Providers Care Special Services Agent Name Role Phone Bartolome Shelton MD Primary Care Provider [phone] Reason for Referral * Consultation (Routine) - Closed Specialty Diagnoses / Procedures Referred By Yash phipps Referred To Contact Rheumatology Diagnoses Pain in joint, multiple sites Noni Smith APRN [address] [place] [address] Phone: tel: fax: Referral ID Status Reason Start Date Expiration Date V isits Requested Visits Authorized [id number] Closed Specialty Services Required 04/02/2023 10/01/2024 1 1 Encounter Details Date Type Department Care Team (Late st Contact Info) Description 04/02/2023 Community [facility] Community Practice [address] [place] [address] Noni Smith APRN [address] [place] [address] Pain in joint, multiple sites (Primary Dx) [...] Primary documented in this encounter Care Teams Special Services Agent Relationship Specialty Start Date End Date Bartolome Shelton MD [address] [place] [address] PCP - General 10/07/20 documented as of this encounter
--- OUTSIDE RECORDS SUMMARY | 2025-02-11 10:04 | XMS_ITS | Encounter Summary ---
Author Organization [facility] Address [address] [place] [address] Care Team Providers Care Supervisor Pig Machine Name Role Phone Bartolome Shelton MD Primary Care Provider [phone] Encounter Details Date Type Department Care Team (Late st Contact Info) Description 09/10/2017 Orders Only External Location [address] [place] [address] Dale Cheng MD [facility] [address] [place], [place] [id number] Social History Tobacco Use Types Packs/Day Years [...] on filedocumented in this encounter Care Teams Supervisor Pig Machine Relationship Specialty Start Date End Date Bartolome Shelton MD [address] [facility] [address] [place], [place] [id number] PCP - General 10/07/20 documented as of this encounter
--- OUTSIDE RECORDS SUMMARY | 2025-02-11 10:04 | XMS_ITS | Clinical Summary ---
Author Organization [facility] Address [address] [place] [address] Care Team Providers Care Cage Manager Name Role Phone Suyapa Callahan APRN Primary Care Provider [phone] Allergies Active Allergy Reactions Criticality Noted Date Comments Cefaclor Other (See Comments) 08/19/2017 MOM TOLD ME I WAS ALLERGIC TO Penicillins Other (See Comments) 08/19/2017 MOM TOLD ME I WAS ALLERGIC Medications escitalopram (LEXAPRO) 10 MG tablet Take 1 tablet by mouth Daily. Active levocetirizine (XYZAL) 5 MG tablet Take 1 tablet by mouth Every Evening. Active pantoprazole (PROTONIX) 40 MG EC tablet Take 1 tablet by mouth Daily. Active propranolol (INDERAL) 10 MG tabletIndications: Palpitations Take 1 tablet by mouth 3 (Three) Times a Day. 90 tablet 2 4 Active fluticasone (FLONASE) 50 MCG/ACT nasal spray Administer 2 sprays into the nostril(s) as directed by provider Daily. 4 Active ezetimibe (ZETIA) 10 MG tabletIndications: Mixed hyperlipidemia Take 1 tablet by mouth once daily 90 tablet 3 5 Active Active Problems Problem Noted Date Diagnosed Date Hyperparathyroidism 05/21/2024 Assessment & Plan (05/21/2024 9:24 AM EST): Discussed calcium regulation by the parathyroid glands and their location Recheck PTH and do 24-hour urine calcium Dizziness 04/02/2024 Assessment & Plan (04/02/2024 5:42 PM EST): Checked orthostatic vital signs in the office today and no orthostatic hypotension noted. Blood pressure lying 110/64 heart rate 82 Blood pressure sitting 112/68 heart rate 73 Blood pressure standing 106/62 heart rate 85 She is encouraged to hydrate well Compression socks Stand and change positions slowly Avoid heat and hot showers or hot bathing Mixed hyperlipidemia 01/02/2024 Assessment & Plan (04/02/2024 5:41 PM EST): Known history of mixed type hyperlipidemia. She had restarted her Crestor but had complaints of muscle aches and pains with Crestor. She was started on Zetia 10 mg. Labs show: Total cholesterol 212 Triglycerides 179 HDL 43 LDL 135.76 We discussed today that she is still slightly elevated Discussed low-cholesterol diet Lowering sugars and carbohydrates Exercise Recheck cholesterol levels in 3 months on Zetia 10 mg. If Zetia is not effective to lowering cholesterol then we can consider trying a lower dose of another statin or give consideration to a medication such as Repatha Assessment & Plan (01/02/2024 5:01 PM EDT): Known history of mixed type hyperlipidemia. She is currently on Crestor 10 mg nightly. Last labs 12/26/2023 off of statin. She has resume statin after labs showing elevation and total cholesterol, LDL and triglycerides. Plan: Continue Crestor 10 mg nightly Encouraged to lower sugar and carbohydrate in diet to improve triglycerides Palpitations 01/02/2024 Assessment & Plan (06/23/2024 11:39 AM EST): Discussed her heart rate goals. Resting would like less than 110. She is essentially already they are. So gave her some reassurance on that. Also discussed increasing her fluid and salt intake in order to help. Treatment similar to POTS although she does not strictly qualify for POTS diagnosis. Also with her weight loss recently this is likely made her more susceptible to hypotension so increasing the fluid and salt may be useful. Also discussed exercise conditioning recommendations. Heart rate in cardiovascular zone is roughly 150 bpm. Recommend that 20 to 30 minutes 3 times a week. Discussed that it may take 6 weeks to get any real improvement in baseline resting heart rate from exercise. If she does notice an improvement discussed that she can start weaning the propranolol little bit at that time but to continue it for now as is. Assessment & Plan (04/02/2024 5:38 PM EST): She had a trial of metoprolol succinate but did not tolerate She is currently on propranolol 10 mg twice a day She is still having palpitations and fast heart rate in the mornings she reports her heart rate up to 128 with minimal activity of performing ADLs. Plan: Check blood pressure and heart rate at home Increase propranolol to 10 mg 3 times a day Give consideration to a heart monitor. We did discuss today but patient prefers not to wear a monitor for further evaluation unless necessary. Assessment & Plan (01/02/2024 4:59 PM EDT): She is currently on propranolol 10 mg twice a day. She would prefer to try a longer acting beta-aurea. Plan: Stop propranolol Start metoprolol succinate 25 mg extended release once a day Encouraged to check blood pressure and heart rate at home few times a week. Follow-up in 1 month for medication adjustment Shortness of breath 01/02/2024 Assessment & Plan (04/02/2024 5:37 PM EST): Shortness of breath with exertion of ambulating 2 flights of stairs. Recent EKG showing low QRS voltage in the chest leads Plan: Reschedule echocardiogram Assessment & Plan (01/02/2024 4:59 PM EDT): Shortness of air with exertion ambulating 2 flights of stairs. EKG today shows low QRS voltage in the chest lead Plan: Check echocardiogram for further evaluation Resolved Problems Problem Noted Date Diagnosed Date Resolved Date Hypertrophic and atrophic condition of skin 09/04/2017 09/04/2017 Family History Medical History Relation Name Comments Diabetes Father Heart disease Mother Relation Name Status Comments Father Alive Mother Alive Social History Tobacco Use Types Packs/Day Years Used Date Smoking Tobacco: Former Cigarettes 0.5 6 2 010 - 2016 Passive Smoke Exposure: Never Smokeless Tobacco: Never Tobacco Cessation:Counseling Given: No Alcohol Use Standard Drinks/Week Comments No 0 (1 standard drink = 0.6 oz pur e alcohol) Comments No Sex and Gender Information Value Date Recorded Sex Assigned at Not on file Legal Sex Female 1:07 PM EDT Gender Identity Not on file Sexual Orientation Not on file Last Filed Vital Signs Vital Sign Reading Time Taken Comments Blood Pressure 114/72 06/23/2024 9:56 AM EST Pulse 95 06/23/2024 9:56 AM EST Temperature 36.8 C (98.2 F) 09/05/2017 7:00 AM EDT Respiratory Rate 18 09/05/2017 7:00 AM EDT Oxygen Saturation 98% 06/23/2024 9:56 AM EST Inhaled Oxygen Concentration - - Weight 78.9 kg (174 lb) 06/23/2024 9:56 AM EST Height 162.6 cm (5' 4 ) 06/23/2024 9:56 AM EST Body Mass Index 29.87 06/23/2024 9:56 AM EST Plan of Treatment Health Maintenance Due Date Last Done Comments Annual Gynecologic Pelvic an d Breast Exam 1985 LIPID PANEL 1985 TDAP/TD VACCINES (1 - Tdap) 2004 PAP SMEAR 2006 ANNUAL PHYSICAL 08/19/2017 INFLUENZA VACCINE 12/25/2024 Pneumococcal Vaccine 0-49 Aged Out 12/11/2006 No longer eligible based on patient's age to complete this topic HEPATITIS C SCREENING Completed 05/07/2023 Procedures Procedure Name Priority Date/Time Associated Diagnosis Comments SCANNED - LABS 11/17/2024 from Last 3 Months Results * LABS SCANNED (11/17/2024) Lucille Granda MD LAB BLOOD ORDERABLES Final R esult from Last 3 Months Insurance [facility] BLUE [facility] PPO UMR Advance Directives * Full Code (Latest Code Status on File) Date Activated Date Inactivated Comments 09/04/2017 1:41 PM 09/05/2017 1:26 PM Care Teams Cage Manager Relationship Specialty Start Date End Date Suyapa Callahan APRN [address] [place] [address] PCP - General Nurse Practitioner 06/30/24
--- OUTSIDE RECORDS SUMMARY | 2025-02-11 10:04 | XMS_ITS | Clinical Summary ---
Author Organization [facility] Address [address] [place] [address] Care Team Providers Care Glazing Department Supervisor Name Role Phone Bartolome Shelton MD Primary Care Provider [phone] Allergies Active Allergy Reactions Criticality Noted Date [...] of 2 - 13+ 2-dose series) 1998 [facility]- SDOH Screenings 10/13/2003 [facility]-Adult SDOH Screenings 10/13/2003 [facility]-Pap Smear 2006 [facility]-Hepatitis B Vaccines (2 of 3 - 19+ 3-dose series) 01/08/2007 12/11/2006 [facility]-IPV Vaccines (2 of 3 - Adult catch-up series) 01/08/2007 12/11/2006 HPV Vaccines (1 - 3-dose SCD M series) 2012 [facility]-Cervical Cancer Screening 10/13/2015 [facility]-HPV/Cotest 10/13/2015 [facility]-DTaP,Tdap,and Td Vaccine s (2 - Tdap) 12/11/2016 12/11/2006 [id number] Vaccine (3 - season) 2025 07/06/2020, 06/08/2020 [facility]-Influenza Vaccine (#1) 2025 [facility]-Zoster Vaccines (1 of 2) 10/13/2035 [...] EST 05/07/2023 10:42 AM EST Kecia Martinez TRAFFIC ANALYST LAB BLOOD ORDERABLES Final Result [facility] [address] [place] [phone] from Last 3 Months or Most Recently Relevant to Health Maintenance Insurance [facility]TH [facility] Care Teams Glazing Department Supervisor Relationship Specialty Start Date End Date Bartolome Shelton MD [address] [place] [address] PCP - General 10/07/20
== END 2025-02-10 23:59 ==
LOC: LAB.DROPOF 02-11 10:03
PROVIDERS: PCP Internal Medicine; Visit Provider Internal Medicine
DX: K29.60 Other gastritis without bleeding (principal); K59.04 Chronic idiopathic constipation; E78.5 Hyperlipidemia, unspecified
CPT/HCPCS: 80053; 80061; 84443; 85025

== ENCOUNTER 2025-02-17 11:07 | Outpatient (CLI) | payer OTHER, BC, SELFPAY ==
[2025-02-17 13:29] LABS: Iron 88 ug/dL (37-170)
[2025-02-17 13:38] LABS: Total Iron Binding Capacity 263 ug/dL (265-497)
[2025-02-17 14:05] LABS: Ferritin 59.5 ng/ml (6.24-137)
[2025-02-18 16:13] LABS: EBV Nuclear Antigen Ab, IgG 171.0 U/mL (0.0-17.9)
--- OUTSIDE RECORDS SUMMARY | 2025-02-19 11:10 | XMS_ITS | Encounter Summary ---
Author Organization [facility] Address [address] [place] [address] Care Team Providers Care Business Analysis Analyst Name Role Phone Bartloome Shelton MD Primary Care Provider [phone] Encounter Details Date Type Department Care Team (Late st Contact Info) Description 09/10/2017 Orders Only External Location [address] [place] [address] Dale Cheng MD [facility] [place] [address] [place], [place] [id number] Social History Tobacco Use Types Packs/Day Years [...] on filedocumented in this encounter Care Teams Business Analysis Analyst Relationship Specialty Start Date End Date Bartolome Shelton MD [address] [facility] [address] [place], [place] [id number] PCP - General 10/07/20 documented as of this encounter
--- OUTSIDE RECORDS SUMMARY | 2025-02-19 11:10 | XMS_ITS | Clinical Summary ---
Author Organization [facility] Address [address] [place] [address] Phone [email or web address] Care Team Providers Care Hand Fabric Cutter Name Role Phone Joni Vallecillo MD Primary Care Provider Allergies Active Allergy Reactions Criticality Noted Date [...] Immunization Administration Dates Next Due Covid-19 (Moderna [place], 12yrs+) (CVX-207) 2020,06/08/2020 DTaP-Hep B-IPV (PEDIARIX)(CVX-110) 12/11/2006 [...] 09/18/2023 12:04 PM EDT Plan of Treatment Upcoming Encounters Date Type Department Care Team (Late st Contact Info) Description 04/15/2025 5:00 PM EST Office Visit [facility] [address] [facility] [address] [place] [address] Dayanara Bass DO [address] [facility] [address] [place] [address] Health Maintenance Due Date Last Done Comments [...] 2025 07/06/2020, 06/08/2020 Influenza Immunization (#1) 2025 Pneumococcal Immunization Aged Out 12/11/2006 No longer eligible based on patient's age to complete this topic HIB Immunization Aged Out No longer e ligible based on patient's age to complete this topic Hepatitis A Immunization Aged Out No longer eligible based on patient's age to complete this topic Varicella Immunization Aged Out No lo nger eligible based on patient's age to complete this topic Insurance ANTHEM NO COPAY NB Care Teams Hand Fabric Cutter Relationship Specialty Start Date End Date Joni Vallecillo MD [address] [place] [address] PCP - General Internal Medicine 03/26/23
--- OUTSIDE RECORDS SUMMARY | 2025-02-19 11:10 | XMS_ITS | Encounter Summary ---
Author Organization [facility] Address [address] [id number] Care Team Providers Care De Icer Kit Assembler Name Role Phone Bartolome Shelton MD Primary Care Provider [phone] Reason for Referral * Consultation (Routine) - Closed Specialty Diagnoses / Procedures Referred By Yash phipps Referred To Contact Rheumatology Diagnoses Pain in joint, multiple sites Noni Smith APRN [address] [place] [address] Phone: tel: fax: Referral ID Status Reason Start Date Expiration Date V isits Requested Visits Authorized [id number] Closed Specialty Services Required 04/02/2023 10/01/2024 1 1 Encounter Details Date Type Department Care Team (Late st Contact Info) Description 04/02/2023 Community [facility] Community Practice [address] [place] [address] Noni Smith APRN [address] [place] [address] Pain in joint, multiple sites (Primary Dx) [...] Primary documented in this encounter Care Teams De Icer Kit Assembler Relationship Specialty Start Date End Date Bartolome Shelton MD [address] [place] [address] PCP - General 10/07/20 documented as of this encounter
--- OUTSIDE RECORDS SUMMARY | 2025-02-19 11:10 | XMS_ITS | Clinical Summary ---
Author Organization [facility] Address [address] [place] [address] Care Team Providers Care Reel Winder Name Role Phone Suyapa Callahan APRN Primary Care Provider [phone] Allergies Active Allergy Reactions Criticality Noted Date [...] this topic HEPATITIS C SCREENING Completed 05/07/2023 [facility] Subscriber Plan / Payer (Ef fective 2011-Present) Name:Lj Mccabe Relation to Subscriber:Spouse Name:MUNA MCCABE Date of :1982 (Home) Address: [address] [place] [address] Payer ID:[id number] (NAIC) Type:Not on file Address: [facility] [id number] [address] Advance Directives * Full Code (Latest Code Status on File) Date Activated Date Inactivated Comments 09/04/2017 1:41 PM 09/05/2017 1:26 PM Care Teams Reel Winder Relationship Specialty Start Date End Date Suyapa Callahan APRN [address] [place] [address] PCP - General Nurse Practitioner 06/30/24
--- OUTSIDE RECORDS SUMMARY | 2025-02-19 11:10 | XMS_ITS | Clinical Summary ---
Author Organization [facility] Address [address] [place] [address] Care Team Providers Care Faucets Assembler Name Role Phone Bartolome Shelton MD Primary Care Provider [phone] Allergies Active Allergy Reactions Criticality Noted Date [...] Vaccine s (2 - Tdap) 12/11/2016 12/11/2006 [id number] Vaccine (3 - season) 2025 07/06/2020, 06/08/2020 [...] EST 05/07/2023 10:42 AM EST Kecia Martinez JAVA WEB ENGINEER LAB BLOOD ORDERABLES Final Result [facility] [address] [place] [phone] from Last 3 Months or Most Recently Relevant to Health Maintenance Insurance ANTH [facility] Care Teams Faucets Assembler Relationship Specialty Start Date End Date Bartolome Shelton MD [address] [place] [address] PCP - General 10/07/20
== END 2025-02-17 23:59 ==
LOC: LAB.DROPOF 02-19 11:08
PROVIDERS: PCP Nurse Practitioner Family; Visit Provider Nurse Practitioner Family
DX: K29.60 Other gastritis without bleeding (principal); K58.1 Irritable bowel syndrome with constipation; E83.10 Disorder of iron metabolism, unspecified; R53.83 Other fatigue
CPT/HCPCS: 82728; 83540; 83550; 86664; 86665

== ENCOUNTER 2025-03-05 15:21 | Outpatient (CLI) | payer OTHER, BC, SELFPAY ==
[2025-03-05 17:04] LABS: 25-OH Vitamin D, Total 35.5 ng/mL (30-100)
[2025-03-05 17:17] LABS: Thyroid Stimulating Hormone 1.25 uIU/mL (0.465-4.68)
[2025-03-09 08:16] LABS: FSH 8.3 mIU/mL (.); LH 6.2 mIU/mL (.); Testosterone,Total 10 ng/dL (8-60)
== END 2025-03-05 23:59 | disposition home or self-care (01) ==
LOC: LAB 15:22
PROVIDERS: PCP Nurse Practitioner Family; Visit Provider Obstetrics & Gynecology
DX: N95.1 Menopausal and female climacteric states (principal); R53.83 Other fatigue
CPT/HCPCS: 36415; 82306; 82670; 83001; 83002; 84144; 84403; 84443

== ENCOUNTER 2025-04-06 08:11 | Outpatient (CLI) | payer OTHER, BC, SELFPAY ==
[2025-04-06 14:35] LABS: Influenza A, PCR Not Detected (NotDetected); Influenza B, PCR Not Detected (NotDetected)
[2025-04-06 19:23] LABS: Coronavirus 19, PCR Detected (NotDetected)
--- OUTSIDE RECORDS SUMMARY | 2025-04-07 14:18 | XMS_ITS | Clinical Summary ---
Author Organization [facility] Address [address] [place] [address] Care Team Providers Care Burlesque Dancer Name Role Phone Suyapa Callahan APRN Primary Care Provider [phone] Allergies Active Allergy Reactions Criticality Noted Date [...] HEPATITIS C SCREENING Completed 05/07/2023 [facility] Member Subscriber Plan / Payer (Ef fective 2011-Present) Name:Lj Mccabe Relation to Subscriber:Spouse Name:MUNA MCCABE Date of :1982 (Home) Address: [address] [place] [address] Payer ID:[id number] (NAIC) Type:Not on file Address: [facility] [id number] Advance Directives * Full Code (Latest Code Status on File) Date Activated Date Inactivated Comments 09/04/2017 1:41 PM 09/05/2017 1:26 PM Care Teams Burlesque Dancer Relationship Specialty Start Date End Date Suyapa Callahan APRN [address] [place] [address] PCP - General Nurse Practitioner 06/30/24
--- OUTSIDE RECORDS SUMMARY | 2025-04-07 14:18 | XMS_ITS | Encounter Summary ---
Author Organization Healthcare Address [address] [place] [address] Care Team Providers Care Travel Pt Name Role Phone Bartolome Shelton MD Primary Care Provider [phone] Encounter Details Date Type Department Care Team (Late st Contact Info) Description 09/10/2017 Orders Only External Location [address] [place] [address] Dale Cheng MD [facility] [address] [place], [place] [id number] Social History Tobacco Use Types Packs/Day Years [...] on filedocumented in this encounter Care Teams Travel Pt Relationship Specialty Start Date End Date Bartolome Shelton MD [address] [facility] [address] [place], [place] [id number] PCP - General 10/07/20 documented as of this encounter
--- OUTSIDE RECORDS SUMMARY | 2025-04-07 14:18 | XMS_ITS | Clinical Summary ---
Author Organization [facility] Address [address] [place] [address] Care Team Providers Care Facing Baster Jumpbasting Name Role Phone Bartoolme Shelton MD Primary Care Provider [phone] Allergies Active Allergy Reactions Criticality Noted Date [...] Comments [facility]-Depression Screening 1985 [facility]-HIV Screening 1985 [facility]-/Child/Adol SDOH Screenings 1985 [facility]-Varicella Vaccines (1 of [...] Vaccine s (2 - Tdap) 12/11/2016 12/11/2006 AGT-[id number]-16 Vaccine (3 - season) 2025 07/06/2020, 06/08/2020 [...] EST 05/07/2023 10:42 AM EST Kecia Martinez A[employer]ICULTURAL EQUIPMENT SALESPERSON LAB BLOOD ORDERABLES Final Result [facility] [address] [place] [id number] from Last 3 Months or Most Recently Relevant to Health Maintenance Insurance [facility] Care Teams Facing Baster Jumpbasting Relationship Specialty Start Date End Date Bartolome Shelton MD [address] [place] [id number] PCP - General 10/07/20
--- OUTSIDE RECORDS SUMMARY | 2025-04-07 14:18 | XMS_ITS | Clinical Summary ---
Author Organization [facility] Address [address] [place] [address] Phone [email or web address] Care Team Providers Care Senior Software Manager Name Role Phone Joni Vallecillo MD Primary Care Provider [phone] Allergies Active Allergy Reactions Criticality Noted Date [...] Immunization Administration Dates Next Due Covid-19 (Moderna Amelia, 12yrs+) (CVX-207) 2020,06/08/2020 DTaP-Hep B-IPV (PEDIARIX)(CVX-110) 12/11/2006 [...] Description 04/15/2025 5:00 PM EST Office Visit [facility] [address] [place] [address] Dayanara Bass DO [address] [place] [address] Health Maintenance Due Date Last Done Comments Cervical Cancer Screening Combo 1985 Dental Cleaning/Exam 1985 HIV Screening 1985 HPV only / HPV + Pap 1985 Hepatitis C Screening 1985 Pap only testing 1985 HPV Immunization (1 - 2-dose series) [...] Insurance [employer] NO COPAY [place] Care Teams Senior Software Manager Relationship Specialty Start Date End Date Joni Vallecillo MD [address] [place] [address] PCP - General Internal Medicine 03/26/23
--- OUTSIDE RECORDS SUMMARY | 2025-04-07 14:18 | XMS_ITS | Encounter Summary ---
Author Organization [facility] Address [address] [address] Care Team Providers Care Medical Affairs Leader Name Role Phone Bartolome Shelton MD Primary Care Provider [phone] Reason for Referral * Consultation (Routine) - Closed Specialty Diagnoses / Procedures Referred By Yash phipps Referred To Contact Rheumatology Diagnoses Pain in joint, multiple sites Noni Smith APRN [address] [place] [address] Phone: tel: fax: Referral ID Status Reason Start Date Expiration Date V isits Requested Visits Authorized [id number] Closed Specialty Services Required 04/02/2023 10/01/2024 1 1 Encounter Details Date Type Department Care Team (Late st Contact Info) Description 04/02/2023 Community [facility] [address] [place] [address] Noni Smith APRN [address] [place] [address] Pain in joint, multiple sites (Primary Dx) [...] Primary documented in this encounter Care Teams Medical Affairs Leader Relationship Specialty Start Date End Date Bartolome Shelton MD [address] [place] [id number] PCP - General 10/07/20 documented as of this encounter
== END 2025-04-06 23:59 | disposition home or self-care (01) ==
LOC: LAB.DROPOF 04-07 14:01
PROVIDERS: PCP Internal Medicine; Visit Provider Student in an Organized Health Care Education/Training Program
DX: J06.9 Acute upper respiratory infection, unspecified (principal)
CPT/HCPCS: 87631